=== PATIENT | male | born 1980 ===

== ENCOUNTER 2020-10-29 23:05 | Inpatient (IN) | payer SELFPAY ==
[~2020-10-29] VITALS: Ht 162.6 cm; Wt 83.1 kg
[2020-10-29] MEDS ORDERED: KETOROLAC 30 MG/ML VIAL IVP ONE (23:30)
[2020-10-29] MEDS ORDERED: ONDANSETRON 4 MG/2 ML (SDV) Z0FRAN IVP ONE (23:30)
[2020-10-29] MEDS ORDERED: LACTATED RINGERS 1,000 ML IV ONE (23:30)
[2020-10-29] MEDS ORDERED: ACETAMINOPHEN 500 MG TAB (TYLENOL) PO ONE (23:30)
[2020-10-30 00:07] LABS: BASOPHILS % (AUTO) 0 % (0-10); EOSINOPHILS % (AUTO) 0 % (0-10); HEMATOCRIT 49 % (40-54); HEMOGLOBIN 16.6 g/dL (13.3-17.7); LYMPHOCYTES # (AUTO) 0.7 10^3/uL (1.0-4.0); LYMPHOCYTES % (AUTO) 8 % (12-44); MEAN CORPUSCULAR HEMOGLOBIN 29 pg (25-34); MEAN CORPUSCULAR HGB CONC 34 g/dL (32-36); MEAN CORPUSCULAR VOLUME 86 fL (80-99); MONOCYTES # (AUTO) 0.3 10^3/uL (0.0-1.0); MONOCYTES % (AUTO) 4 % (0-12); NEUTROPHILS # (AUTO) 7.2 10^3/uL (1.8-7.8); NEUTROPHILS % (AUTO) 87 % (42-75); PLATELET COUNT 272 10^3/uL (130-400); WHITE BLOOD COUNT 8.3 10^3/uL (4.3-11.0)
[2020-10-30 00:09] LABS: ALBUMIN 3.9 GM/DL (3.2-4.5)
[2020-10-30 00:10] LABS: CHLORIDE 98 MMOL/L (98-107); POTASSIUM 3.3 MMOL/L (3.6-5.0); SODIUM 136 MMOL/L (135-145)
[2020-10-30 00:11] LABS: CALCIUM 9.5 MG/DL (8.5-10.1)
[2020-10-30 00:12] LABS: GLUCOSE 146 MG/DL (70-105); TOTAL PROTEIN 7.7 GM/DL (6.4-8.2)
[2020-10-30 00:13] LABS: CARBON DIOXIDE 22 MMOL/L (21-32)
[2020-10-30 00:14] LABS: BILIRUBIN,TOTAL 0.5 MG/DL (0.1-1.0)
[2020-10-30 00:15] LABS: ALKALINE PHOSPHATASE 174 U/L (40-136)
[2020-10-30 00:16] LABS: CREATININE SERUM 1.11 MG/DL (0.60-1.30); GFR ESTIMATED > 60
[2020-10-30 00:17] LABS: BUN/CREATININE RATIO 15
[2020-10-30 00:19] LABS: ALANINE AMINOTRANSFERASE 49 U/L (0-55)
[2020-10-30 00:25] LABS: LYMPHOCYTES % (MANUAL) 3 %; MONOCYTES % (MANUAL) 4 %; NEUTROPHILS % (MANUAL) 93 %; RBC MORPH NORMAL
[2020-10-30] MEDS ORDERED: RT-ALBUTEROL INHALER HFA (VENTOLIN HFA) 18 GM IH STA (01:50)
[2020-10-30] MEDS ORDERED: RT-ALBUTEROL INHALER HFA (VENTOLIN HFA) 18 GM IH ONE (01:50)
[2020-10-30] MEDS ORDERED: CATHETER FLUSH 10 ML SYR IV PRN (02:00)
[2020-10-30] MEDS ORDERED: IOHEXOL 350 MG/ML 100 ML (OMNIPAQUE 350) VIAL IV ONE (02:00)
[2020-10-30] MEDS ORDERED: NS 100 ML (IVPB) BAG IV ONE (02:00)
[2020-10-30] MEDS ORDERED: HOLD METFORMIN - RECEIVED CONTRAST 20 ML VIAL IV SCH (02:00)
--- NOTE | 2020-10-30 03:12 | ED General ---
General Chief Complaint: Respiratory Problems Stated Complaint: SOB Nursing Triage Note: TO ED VIA POV AND AMBULATORY TO ROOM 6 WITH C/O SOA, COUGH, COVID + (TESTED ON 10/21/20). PT STATES INCREASED COUGH/SOA LAST 3-4 DAYS, DECREASED APPETITE, VOMITING, DIARRHEA. LAST TYLENOL 1600 AND IBUPROFEN EARLIER IN DAY. Source of Information: Patient Exam Limitations: No Limitations History of Present Illness Date Seen by Provider: Oct 30, 2020 Time Seen by Provider: 23:30 Initial Comments This 40-year-old gentleman presents to the emergency room with increasing shortness of breath, cough, and exhaustion with COVID-19. He was diagnosed during a work screening on October 21. Oxygen saturation is 83% on room air. He has had some vomiting, diarrhea, headache, and myalgia. Allergies and Home Medications Allergies Coded Allergies: Sulfa (Sulfonamide Antibiotics) (Verified Allergy, Intermediate, 10/29/20) Patient Home Medication List Home Medication List Reviewed: Yes Review of Systems Review of Systems Constitutional: see HPI, fever EENTM: see HPI Respiratory: see HPI Cardiovascular: no symptoms reported Gastrointestinal: see HPI Genitourinary: no symptoms reported Musculoskeletal: see HPI Skin: no symptoms reported Psychiatric/Neurological: See HPI Hematologic/Lymphatic: No Symptoms Reported Immunological/Allergic: no symptoms reported Past Aawlrse-Lvonsz-Zwwukh Hx Patient Social History Tobacco Use?: No Substance use?: No Alcohol Use?: No Pt feels they are or have been: No Past Medical History Surgeries: No Respiratory: No Cardiac: No Neurological: No Reproductive Disorders: No Genitourinary: No Gastrointestinal: No Musculoskeletal: No Endocrine: No HEENT: No Cancer: No Psychosocial: No Integumentary: No Physical Exam Vital Signs Vital Signs - First Documented 10/29/20 23:21 Temp 38.2 Pulse 121 Resp 16 B/P (MAP) 151/92 (111) O2 Delivery Room Air Capillary Refill : Less Than 3 Seconds Height, Weight, BMI Height: '" Weight: lbs. oz. kg; 31.00 BMI Method: General Appearance: WD/WN, Mild Distress HEENT: PERRL/EOMI, Normal ENT Inspection Neck: Normal Inspection Respiratory: No Accessory Muscle Use, No Respiratory Distress, Wheezing Cardiovascular: Regular Rate, Rhythm, No Edema, No Murmur Gastrointestinal: Non Tender, Soft Extremity: Normal Inspection, Non Tender, No Calf Tenderness, No Pedal Edema Neurologic/Psychiatric: Alert, Oriented x3, No Motor/Sensory Deficits, Normal Mood/Affect, audio visual production specialist II-XII Norm as Tested Skin: Normal Color, Warm/Dry Progress/Results/Core Measures Suspected Sepsis SIRS Temperature: Pulse: 121 Respiratory Rate: 16 Laboratory Tests 10/29/20 23:30: White Blood Count 8.3 Blood Pressure 151 /92 Mean: 111 Laboratory Tests 10/29/20 23:30: Creatinine 1.11, Platelet Count 272, Total Bilirubin 0.5 Results/Orders Lab Results Laboratory Tests Test 10/29/20 23:30 Range/Units White Blood Count 8.3 4.3-11.0 10^3/uL Red Blood Count 5.65 H 4.30-5.52 10^6/uL Hemoglobin 16.6 13.3-17.7 g/dL Hematocrit 49 40-54 % Mean Corpuscular Volume 86 80-99 fL Mean Corpuscular Hemoglobin 29 25-34 pg Mean Corpuscular Hemoglobin Concent 34 32-36 g/dL Red Cell Distribution Width 12.7 10.0-14.5 % Platelet Count 272 130-400 10^3/uL Mean Platelet Volume 10.0 9.0-12.2 fL Immature Granulocyte % (Auto) 1 % Neutrophils (%) (Auto) 87 H 42-75 % Lymphocytes (%) (Auto) 8 L 12-44 % Monocytes (%) (Auto) 4 0-12 % Eosinophils (%) (Auto) 0 0-10 % Basophils (%) (Auto) 0 0-10 % Neutrophils # (Auto) 7.2 1.8-7.8 10^3/uL Lymphocytes # (Auto) 0.7 L 1.0-4.0 10^3/uL Monocytes # (Auto) 0.3 0.0-1.0 10^3/uL Eosinophils # (Auto) 0.0 0.0-0.3 10^3/uL Basophils # (Auto) 0.0 0.0-0.1 10^3/uL Immature Granulocyte # (Auto) 0.1 0.0-0.1 10^3/uL Neutrophils % (Manual) 93 % Lymphocytes % (Manual) 3 % Monocytes % (Manual) 4 % Blood Morphology Comment NORMAL D-Dimer 0.68 H 0.00-0.49 UG/ML Sodium Level 136 135-145 MMOL/L Potassium Level 3.3 L 3.6-5.0 MMOL/L Chloride Level 98 98-107 MMOL/L Carbon Dioxide Level 22 21-32 MMOL/L Anion Gap 16 H 5-14 MMOL/L Blood Urea Nitrogen 17 7-18 MG/DL Creatinine 1.11 0.60-1.30 MG/DL Estimat Glomerular Filtration Rate > 60 BUN/Creatinine Ratio 15 Glucose Level 146 H 70-105 MG/DL Calcium Level 9.5 8.5-10.1 MG/DL Corrected Calcium 9.6 8.5-10.1 MG/DL Total Bilirubin 0.5 0.1-1.0 MG/DL Aspartate Amino Transf (AST/SGOT) 62 H 5-34 U/L Alanine Aminotransferase (ALT/SGPT) 49 0-55 U/L Alkaline Phosphatase 174 H 40-136 U/L Lactate Dehydrogenase 471 H 125-220 U/L C-Reactive Protein High Sensitivity 14.23 H 0.00-0.50 MG/DL Total Protein 7.7 6.4-8.2 GM/DL Albumin 3.9 3.2-4.5 GM/DL Procalcitonin 0.18 H <0.10 NG/ML My Orders Orders - OFE DALLAS MD Ketorolac Injection (Toradol Injection) (10/29/20 23:30) Acetaminophen Tablet (Tylenol Tablet) (10/29/20 23:30) Ed Iv/Invasive Line Start (10/29/20 23:30) Lactated Ringers (Lr 1000 Ml Iv Solution (10/29/20 23:30) Ondansetron Injection (Zofran Injectio (10/29/20 23:30) Cbc With Automated Diff (10/29/20 23:33) Comprehensive Metabolic Panel (10/29/20 23:33) Fibrin Degradation Products (10/29/20 23:33) Procalcitonin (Pct) (10/29/20 23:33) Hs C Reactive Protein (10/29/20 23:33) LDH (10/29/20 23:33) Chest 1 View, Ap/Pa Only (10/30/20 00:01) Manual Differential (10/29/20 23:30) Ct Angio Chest W (10/30/20 00:47) Albuterol Inhaler (Ventolin Hfa) (10/30/20 01:50) Iohexol Injection (Omnipaque 350 Mg/Ml 1 (10/30/20 02:00) Received Contrast (Hold Metformin- Contr (10/30/20 02:00) Sodium Chloride Flush (Catheter Flush Sy (10/30/20 02:00) Ns (Ivpb) (Sodium Chloride 0.9% Ivpb Bag (10/30/20 02:00) Albuterol Inhaler (Ventolin Hfa) (10/30/20 01:50) Medications Given in ED Current Medications Medications Dose Ordered Sig/Flaquita Route Start Time Stop Time Status Last Admin Dose Admin Iohexol 100 ml ONCE ONCE IV 10/30/20 02:00 10/30/20 02:01 DC 10/30/20 02:11 90 ML Sodium Chloride 10 ml NEEDED PRN IV 10/30/20 02:00 10/30/20 02:12 10 ML Sodium Chloride 100 ml ONCE ONCE IV 10/30/20 02:00 10/30/20 02:01 DC 10/30/20 02:12 80 ML Vital Signs/I&O 10/29/20 23:21 Temp 38.2 Pulse 121 Resp 16 B/P (MAP) 151/92 (111) O2 Delivery Room Air Capillary Refill : Less Than 3 Seconds Blood Pressure Mean: 111 Progress Note : Progress Note Patient was treated with Tylenol, Toradol, IV fluids, Zofran, and dexamethasone. Because of hypoxia D-dimer was obtained which was elevated. CT angiogram was negative for PE. Patient was admitted. Diagnostic Imaging Diagonstic Imaging: Xray Plain Films/CT/US/NM/MRI: chest Comments NAME: SCARLETT HAWKINS [facility] REC#: [id number] PT STATUS: ADM IN : 1980 PHYSICIAN: OFE DALLAS MD ADMIT DATE: 10/30/20/ICU Signed Date of Exam:10/30/20 CHEST 1 VIEW, AP/PA ONLY INDICATION: Covid pneumonia. Shortness of air. Cough. Congestion. COMPARISON: None FINDINGS: Single frontal radiographic view of the chest was obtained and shows low inspiratory volumes with scattered patchy interstitial infiltrate. There is no large effusion or pneumothorax. Cardiac silhouette and pulmonary vasculature are within normal limits. Osseous structures show no gross acute abnormalities. IMPRESSION: 1. Low lung volumes with scattered interstitial infiltrate. Correlation with Covid status is recommended. Dictated by: Dictated on workstation # [id number] Dict: 10/30/20 05 Trans: 10/30/20926 CLARIBEL [id number] Interpreted by: ADAIR POLLOCK MD Electronically signed by: ADAIR POLLOCK MD 10/30/20926 Diagonstic Imaging: CT Plain Films/CT/US/NM/MRI: chest, abdomen Comments NAME: SCARLETT HAWKINS [facility] REC#: [id number] PT STATUS: ADM IN : 1980 PHYSICIAN: OFE DALLAS MD ADMIT DATE: 10/30/20/ICU Signed Date of Exam:10/30/20 CT ANGIO CHEST W PROCEDURE: CT angiography of the chest with contrast. TECHNIQUE: Multiple contiguous axial images were obtained through the chest after uneventful bolus administration of intravenous contrast. 3D reconstructed CTA MIP acquisitions were also performed. Auto Exposure Controls were utilized during the CT exam to meet ALARA standards for radiation dose reduction. INDICATION: Shortness of breath. FINDINGS: There are scattered groundglass infiltrates suspect for Covid pneumonia. There is no pleural or pericardial fluid. There is no pneumothorax. The thoracic aorta is normal in caliber and without evidence of dissection. There are no filling defects seen within the pulmonary arteries to suggest pulmonary embolism. There is no pathologically enlarged adenopathy in the chest. Visualized intra-abdominal structures are unremarkable. The osseous structures are unremarkable. IMPRESSION: No evidence of pulmonary embolism or aortic dissection. Multifocal groundglass infiltrates suspect for Covid pneumonia. Fatty infiltration of the liver. Dictated by: Dictated on workstation # [id number] Dict: 10/30/20 0750 Trans: 10/30/20802 [id number] Interpreted by: JESS NORWOOD MD Electronically signed by: JESS NORWOOD MD 10/30/20802 Departure Communication (Admissions) Time/Spoke to Admitting Phy: 03:07 Dr. Nance Impression Primary Impression: COVID-19 Additional Impression: Hypoxia Disposition: ADMITTED INPATIENT Condition: Improved Admissions Decision to Admit Reason: Admit from ER (General) Decision to Admit/Date: Oct 30, 2020 Time/Decision to Admit Time: 03:11 Departure-Patient Inst. Referrals: NO,LOCAL PHYSICIAN (PCP/Family) Primary Care Physician OFE DALLAS MD Oct 30, 2020 03:12
[2020-10-30] MEDS ORDERED: HYDROcodone/APAP 5 MG/325 MG (LORTAB) TAB PO PRN (05:15)
[2020-10-30] MEDS ORDERED: BENZONATATE 100 MG (TESSALON) CAPSULE PO PRN (05:15)
[2020-10-30] MEDS ORDERED: ONDANSETRON 4 MG/2 ML (SDV) Z0FRAN IV PRN (05:15)
[2020-10-30] MEDS ORDERED: IBUPROFEN 600 MG (MOTRIN) TAB PO PRN (05:15)
[2020-10-30] MEDS ORDERED: LACTATED RINGERS 1,000 ML IV SCH (05:15)
--- NOTE | 2020-10-30 05:35 | Diagnostic Imaging Report ---
INDICATION: Covid pneumonia. Shortness of air. Cough. Congestion. COMPARISON: None FINDINGS: Single frontal radiographic view of the chest was obtained and shows low inspiratory volumes with scattered patchy interstitial infiltrate. There is no large effusion or pneumothorax. Cardiac silhouette and pulmonary vasculature are within normal limits. Osseous structures show no gross acute abnormalities. IMPRESSION: 1. Low lung volumes with scattered interstitial infiltrate. Correlation with Covid status is recommended. Dictated by: Dictated on workstation # [id number]
[2020-10-30 07:50] LABS: BASOPHILS % (AUTO) 0 % (0-10); EOSINOPHILS % (AUTO) 0 % (0-10); HEMATOCRIT 46 % (40-54); HEMOGLOBIN 15.7 g/dL (13.3-17.7); LYMPHOCYTES # (AUTO) 0.5 10^3/uL (1.0-4.0); LYMPHOCYTES % (AUTO) 5 % (12-44); MEAN CORPUSCULAR HEMOGLOBIN 30 pg (25-34); MEAN CORPUSCULAR HGB CONC 34 g/dL (32-36); MEAN CORPUSCULAR VOLUME 87 fL (80-99); MEAN PLATELET VOLUME 9.8 fL (9.0-12.2); MONOCYTES # (AUTO) 0.3 10^3/uL (0.0-1.0); MONOCYTES % (AUTO) 3 % (0-12); NEUTROPHILS # (AUTO) 9.3 10^3/uL (1.8-7.8); NEUTROPHILS % (AUTO) 91 % (42-75); PLATELET COUNT 279 10^3/uL (130-400); WHITE BLOOD COUNT 10.3 10^3/uL (4.3-11.0)
--- NOTE | 2020-10-30 08:05 | Diagnostic Imaging Report ---
PROCEDURE: CT angiography of the chest with contrast. TECHNIQUE: Multiple contiguous axial images were obtained through the chest after uneventful bolus administration of intravenous contrast. 3D reconstructed CTA MIP acquisitions were also performed. Auto Exposure Controls were utilized during the CT exam to meet ALARA standards for radiation dose reduction. INDICATION: Shortness of breath. FINDINGS: There are scattered groundglass infiltrates suspect for Covid pneumonia. There is no pleural or pericardial fluid. There is no pneumothorax. The thoracic aorta is normal in caliber and without evidence of dissection. There are no filling defects seen within the pulmonary arteries to suggest pulmonary embolism. There is no pathologically enlarged adenopathy in the chest. Visualized intra-abdominal structures are unremarkable. The osseous structures are unremarkable. IMPRESSION: No evidence of pulmonary embolism or aortic dissection. Multifocal groundglass infiltrates suspect for Covid pneumonia. Fatty infiltration of the liver. Dictated by: Dictated on workstation # [id number]
[2020-10-30 08:18] LABS: BUN/CREATININE RATIO 13; CALCIUM 9.2 MG/DL (8.5-10.1); CARBON DIOXIDE 22 MMOL/L (21-32); CHLORIDE 103 MMOL/L (98-107); CREATININE SERUM 0.89 MG/DL (0.60-1.30); GFR ESTIMATED > 60; GLUCOSE 194 MG/DL (70-105); MAGNESIUM 2.1 MG/DL (1.6-2.4); PHOSPHORUS 2.5 MG/DL (2.3-4.7); POTASSIUM 3.3 MMOL/L (3.6-5.0); SODIUM 135 MMOL/L (135-145)
[2020-10-30] MEDS: ENOXAPARIN 40 MG/0.4 ML (LOVENOX) SYR SC SCH (08:34)
[2020-10-30] MEDS: KCL 20 MEQ TAB (K-DUR) PO SCH ×2 (09:57→12:42)
--- NOTE | 2020-10-30 10:29 | Tele-ICU Consult ---
History of Present Illness History of Present Illness Date Seen by Provider: Oct 30, 2020 Time Seen by Provider: 10:28 Date of Admission Allergies and Home Medications Allergies Coded Allergies: Sulfa (Sulfonamide Antibiotics) (Verified Allergy, Intermediate, 10/29/20) Past Medical/Social/Family Hx Patient Social History Tobacco Use?: No Substance use?: No Alcohol Use?: No Pt stated abuse/neglect: No Current Status Communicates: Verbally Primary Language: Khmer Preferred Spoken Language: Khmer Review of Systems Constitutional: see HPI Sepsis Event Evaluation Height, Weight, BMI Height: '" Weight: lbs. oz. kg; 31.00 BMI Method: Exam Exam Patient acknowledged, consented, and participated in this virtual visit which was conducted using real time audio/video Vital Signs Date Time Temp Pulse Resp B/P (MAP) Pulse Ox O2 Delivery O2 Flow Rate FiO2 10/30/20 09:00 96 17 144/88 (106) 92 Nasal Cannula 2.00 10/30/20 08:45 94 Nasal Cannula 2.00 10/30/20 08:34 94 Nasal Cannula 2.00 10/30/20 08:00 35.9 10/30/20 08:00 92 36 135/89 (104) 94 Nasal Cannula 3.00 10/30/20 07:00 96 9 163/102 (122) 94 Nasal Cannula 3.00 10/30/20 06:50 96 10/30/20 06:15 102 29 150/101 (117) 94 Nasal Cannula 3.00 10/30/20 05:45 92 13 151/98 (115) 94 Nasal Cannula 3.00 10/30/20 05:30 92 30 147/95 (112) 94 Nasal Cannula 3.00 10/30/20 05:15 96 20 151/98 (115) 93 Nasal Cannula 3.00 10/30/20 05:04 100 10/30/20 05:00 95 20 149/94 (112) 93 Nasal Cannula 3.00 10/30/20 05:00 94 Nasal Cannula 3.00 10/30/20 04:55 36.1 92 25 140/99 (111) 94 Nasal Cannula 3.00 10/29/20 23:21 38.2 121 16 151/92 (111) Room Air I & O 10/30/20 07:00 Intake Total 1100 ml Balance 1100 ml Height & Weight Height: '" Weight: lbs. oz. kg; 31.00 BMI Method: General Appearance: No Apparent Distress Capillary Refill: Less Than 3 Seconds Results Lab Laboratory Tests 10/29/20 23:30 10/30/20 07:32 Assessment/Plan Assessment/Plan (Tele-ICU Physician , consultation) Available chart/ vitals / labs / Images reviewed H&P is from ER notes Patient's information available about PMH, Shx, Fhx allergy reviewed in EMR. ROS as per chart and RN report Patient admitted 10/30 with COvid PNA, CT Ch - no PE Now in ICU, hemodynamically stable Video assessment done using teleICU camera, rest of exam as per RN Discussed with RN. Consultants: A/P Acute resp failure - COVID PNA, no PE on CT 10/30 - on NA 2 l COVID PNA - tested 10/21 - steroids IV 10/30 - out of time window for rmdesivir - monitor for bact PNA - PCT 10/30 0.18 Lines : , (Central Line Necessity Reviewed) Pond: OG: Nutrition: Analgesia: Anxiety/ delirium VTE Prophylaxis: Stress Ulcer Prophylaxis: Glycemic Control: Plans in collaboration with bedside consultants and IM MDs. Discussed with RN to reach out if any questions or concerns A total of _ minutes of critical care time was devoted to this patient today, required to treat and/or prevent further deterioration of critical care condition ( as above ) . TOÑITO HERRERA MD Oct 30, 2020 10:29
[2020-10-30] MEDS ORDERED: ACET-2267 PO (13:27)
[2020-10-30] MEDS ORDERED: IBUP-2185 PO (13:27)
[2020-10-30] MEDS ORDERED: MULT-1136 PO (13:27)
[2020-10-30] MEDS ORDERED: REMDESIVIR INJ 200 MG in NS (IVPB) 210 ML IV NR (16:00)
--- NOTE | 2020-10-30 16:13 | History & Physical-Hospitalist ---
History of Present Illness HPI/Chief Complaint Alejandro Diaz is a 40 year old male with PMH HTN who presented with shortness of breath. He also reports cough. He has had fevers. He has lost his sense of taste and smell. He had some diarrhea previously. He denies chest pain. He was not vaccinated against COVID-19. He has not had COVID previously. He thinks he was exposed around October 15. He was tested on October 21 prior to returning to work and was positive. He was asymptomatic at that time. He subsequently developed symptoms a couple days later. Source: patient Exam Limitations: no limitations Date Seen 10/30/20 Time Seen by a Provider: 14:30 Attending Physician Natalie Nance DO PCP No,Local Physician Referring Physician Date of Admission Oct 30, 2020 at 03:12 Home Medications & Allergies Home Medications Reviewed patient Home Medication Reconciliation performed by pharmacy medication reconciliations orthodontic laboratory technician and/or nursing. Patients Allergies have been reviewed. Allergies Allergies Coded Allergies Sulfa (Sulfonamide Antibiotics) (Verified Allergy, Intermediate, 10/29/20) Past Fdtocrx-Wsovdg-Rmkajq Hx Patient Social History Tobacco Use?: No Substance use?: No Alcohol Use?: No Pt feels they are or have been: No Current Status Communicates: Verbally Primary Language: Somali Preferred Spoken Language: Somali Past Medical History Hypertension Family Medical History No Pertinent Family Hx Review of Systems Constitutional: fever Respiratory: cough, short of breath Cardiovascular: no symptoms reported Gastrointestinal: diarrhea Genitourinary: no symptoms reported Musculoskeletal: no symptoms reported Skin: no symptoms reported Psychiatric/Neurological: No Symptoms Reported Physical Exam Physical Exam Vital Signs Vital Signs - First Documented 10/29/20 10/30/20 23:21 04:55 Temp 38.2 Pulse 121 Resp 16 B/P (MAP) 151/92 (111) Pulse Ox 94 O2 Delivery Room Air O2 Flow Rate 3.00 Capillary Refill : Less Than 3 Seconds Height, Weight, BMI Height: '" Weight: lbs. oz. kg; 31.00 BMI Method: General Appearance: No Apparent Distress, Obese Respiratory: No Respiratory Distress, Wheezing Cardiovascular: No Murmur, Tachycardia Gastrointestinal: Normal Bowel Sounds, Non Tender, Soft Extremity: Normal Inspection, Non Tender, No Pedal Edema Neurologic/Psychiatric: Alert, Oriented x3, No Motor/Sensory Deficits, Normal Mood/Affect Skin: Normal Color, Warm/Dry Lymphatic: No Adenopathy Results Results/Procedures Labs Laboratory Tests 10/29/20 23:30 10/30/20 07:32 Patient resulted labs reviewed. Imaging: Reviewed Imaging Report Assessment/Plan Admission Diagnosis Acute respiratory failure due to COVID-19 Admission Status: Inpatient Order (span 2 midnights) Reason for Inpatient Admission: Requiring supplemental oxygen Assessment and Plan Acute respiratory failure due to COVID-19 Elevated d-dimer Tested positive 10/21 Chest xray with bilateral infiltrates D-dimer mildly elevated CT Chest without PE, bilateral groundglass opacities Procalcitonin within normal limits, antibiotics not started Started on Decadron Begin Remdesivir Convalescent plasma ordered, discussed risks/benefits/EUA use and patient agrees Supplemental oxygen as needed Prophylactic Lovenox Pulmonology consult Hypokalemia Monitor and replace as needed Hyperglycemia Check A1C Sliding scale insulin HTN Not taking any medications at home Begin Lisinopril Obesity Clinically significant, no acute management needs DVT prophylaxis: Lovenox Diagnosis/Problems Diagnosis/Problems (1) Acute respiratory failure due to COVID-19 Status: Acute (2) Elevated d-dimer Status: Acute (3) HTN (hypertension) Status: Chronic (4) Obesity Status: Chronic (5) Hyperglycemia Status: Acute (6) Hypokalemia Status: Acute KAREY WALTON MD Oct 30, 2020 16:13
[2020-10-30] MEDS ORDERED: NS IV 500 ML 500 ML IV PRN (16:15)
[2020-10-30] MEDS ORDERED: lisINopril 40 MG (PRINIVIL) TABLET PO NR (16:30)
[2020-10-30] MEDS: inSUlin ASPART (NovoLOG) 1 UNIT/0.01 ML (CHARGE PER UNIT) SC SCH ×2 (17:46→20:50)
[2020-10-30] MEDS: guaiFENesin/DM (ROBITUSSIN DM) 10 ML UDC PO PRN (18:08)
[2020-10-30] MEDS ORDERED: CALCIUM CARBONATE 500 MG (TUMS) TAB.CHEW PO PRN (20:00)
[2020-10-31] MEDS: guaiFENesin/DM (ROBITUSSIN DM) 10 ML UDC PO PRN ×2 (03:33→23:25)
[2020-10-31 05:51] LABS: BASOPHILS % (AUTO) 0 % (0-10); EOSINOPHILS % (AUTO) 0 % (0-10); HEMATOCRIT 44 % (40-54); HEMOGLOBIN 15.1 g/dL (13.3-17.7); LYMPHOCYTES # (AUTO) 0.8 10^3/uL (1.0-4.0); LYMPHOCYTES % (AUTO) 6 % (12-44); MEAN CORPUSCULAR HEMOGLOBIN 30 pg (25-34); MEAN CORPUSCULAR HGB CONC 34 g/dL (32-36); MEAN CORPUSCULAR VOLUME 86 fL (80-99); MEAN PLATELET VOLUME 9.7 fL (9.0-12.2); MONOCYTES # (AUTO) 0.7 10^3/uL (0.0-1.0); MONOCYTES % (AUTO) 5 % (0-12); NEUTROPHILS % (AUTO) 88 % (42-75); PLATELET COUNT 369 10^3/uL (130-400); WHITE BLOOD COUNT 13.7 10^3/uL (4.3-11.0)
[2020-10-31 06:01] LABS: CHLORIDE 106 MMOL/L (98-107); POTASSIUM 3.7 MMOL/L (3.6-5.0)
[2020-10-31 06:02] LABS: SODIUM 140 MMOL/L (135-145)
[2020-10-31 06:03] LABS: CALCIUM 9.1 MG/DL (8.5-10.1); GLUCOSE 144 MG/DL (70-105)
[2020-10-31 06:05] LABS: CARBON DIOXIDE 22 MMOL/L (21-32)
[2020-10-31 06:07] LABS: CREATININE SERUM 0.76 MG/DL (0.60-1.30); GFR ESTIMATED > 60; PHOSPHORUS 2.8 MG/DL (2.3-4.7)
[2020-10-31 06:08] LABS: BUN/CREATININE RATIO 16
[2020-10-31] MEDS: POTASSIUM CL 10MEQ/50ML IVPB 50 ML IV SCH (06:16)
[2020-10-31] MEDS: inSUlin ASPART (NovoLOG) 1 UNIT/0.01 ML (CHARGE PER UNIT) SC SCH (06:16)
[2020-10-31] MEDS: KCL 20 MEQ TAB (K-DUR) PO SCH (06:16)
[2020-10-31] MEDS: MAGNESIUM 1 GM/100 ML IVPB 100 ML IV SCH (06:16)
[2020-10-31] MEDS: lisINopril 40 MG (PRINIVIL) TABLET PO SCH (09:46)
[2020-10-31] MEDS: ENOXAPARIN 40 MG/0.4 ML (LOVENOX) SYR SC SCH (09:46)
--- NOTE | 2020-10-31 10:54 | Pulmonary Progress Note ---
Subjective Date Seen by a Provider: Oct 31, 2020 Time Seen by a Provider: 10:50 Subjective/Events-last exam Patient today feeling somewhat better. Headache is less. Cough is also less. No leg swelling or rash present. Resting somewhat comfortably abdominal cramps and diarrhea improved. Sepsis Event Evaluation Height, Weight, BMI Height: '" Weight: lbs. oz. kg; 31.00 BMI Method: Exam Exam Patient acknowledged, consented, and participated in this virtual visit which was conducted using real time audio/video Vital Signs Date Time Temp Pulse Resp B/P (MAP) Pulse Ox O2 Delivery O2 Flow Rate FiO2 10/31/20 09:11 Nasal Cannula 3.00 10/31/20 03:31 36.5 77 20 146/96 (113) 92 Nasal Cannula 3.00 10/31/20 00:36 36.1 80 20 180/100 (126) 92 Nasal Cannula 3.00 10/30/20 20:00 Nasal Cannula 3.00 10/30/20 19:55 37.4 103 24 176/106 (129) 92 Nasal Cannula 3.00 10/30/20 16:12 37.0 92 18 158/98 (118) 89 Nasal Cannula 2.00 2.00 10/30/20 12:37 105 I & O 10/31/20 07:00 Intake Total 3004 ml Output Total 1478 ml Balance 1526 ml Height & Weight Height: '" Weight: lbs. oz. kg; 31.00 BMI Method: General Appearance: No Apparent Distress, Obese HEENT: PERRL/EOMI, Normal ENT Inspection Neck: Normal Inspection Respiratory: No Respiratory Distress, Wheezing Cardiovascular: No Murmur, Tachycardia Capillary Refill: Less Than 3 Seconds Extremity: Normal Inspection, Non Tender, No Pedal Edema Neurologic/Psychiatric: Alert, Oriented x3, No Motor/Sensory Deficits, Normal Mood/Affect Skin: Normal Color, Warm/Dry Lymphatic: No Adenopathy Results Lab Laboratory Tests 10/29/20 23:30 10/30/20 07:32 10/31/20 05:28 Meds reviewed Radiology reviewed on Pacs Assessment/Plan Assessment/Plan 1. Acute hypoxic respiratory failure on oxygen 2. Covid19 pneumonia, viral 3. Obesity. Recommendations 1. Continue supplemental oxygen via nasal cannula 2. Continue IV Decadron and Remdesvir 3. DVT prophylaxis and ulcer prophylaxis 4. Continue to monitor his a D-dimer and a BMP. 5. Discussed with the patient via video visit and also bedside RN Time spent with patient (mins): 30 Diagnosis/Problems Diagnosis/Problems (1) Hypoxia Status: Acute (2) COVID-19 Status: Acute (3) Acute respiratory failure due to COVID-19 Status: Acute (4) Hypokalemia Status: Acute (5) Obesity Status: Chronic (6) Elevated d-dimer Status: Acute (7) HTN (hypertension) Status: Chronic FRANCY SANDOVAL MD Oct 31, 2020 10:54
--- NOTE | 2020-10-31 15:13 | Progress Note - Hospitalist ---
Subjective HPI/CC On Admission Date Seen by Provider: Oct 31, 2020 Time Seen by Provider: 10:45 Alejandro Diaz is a 40 year old male with PMH HTN who presented with shortness of breath. He also reports cough. He has had fevers. He has lost his sense of taste and smell. He had some diarrhea previously. He denies chest pain. He was not vaccinated against COVID-19. He has not had COVID previously. He thinks he was exposed around October 15. He was tested on October 21 prior to returning to work and was positive. He was asymptomatic at that time. He subsequently developed symptoms a couple days later. Subjective/Events-last exam He is feeling better today. He is not feeling short of breath. He still has a cough. He is not having fevers. Objective Exam Vital Signs Vital Signs Date Time Temp Pulse Resp B/P (MAP) Pulse Ox O2 Delivery O2 Flow Rate FiO2 10/31/20 12:00 37.0 91 20 158/98 (118) 90 Nasal Cannula 3.00 Capillary Refill : Less Than 3 Seconds General Appearance: No Apparent Distress, WD/WN Respiratory: Lungs Clear, Normal Breath Sounds, No Respiratory Distress Cardiovascular: Regular Rate, Rhythm, No Edema, No Murmur Gastrointestinal: Normal Bowel Sounds, Non Tender, Soft Extremity: Normal Inspection, Non Tender, No Pedal Edema Neurologic/Psychiatric: Alert, Oriented x3, No Motor/Sensory Deficits, Normal Mood/Affect Skin: Normal Color, Warm/Dry Results/Procedures Lab Laboratory Tests 10/31/20 05:28 Patient resulted labs reviewed. Imaging: Reviewed Imaging Report Assessment/Plan Assessment and Plan Assess & Plan/Chief Complaint Acute respiratory failure due to COVID-19 Elevated d-dimer Tested positive 10/21 Chest xray with bilateral infiltrates D-dimer mildly elevated CT Chest without PE, bilateral groundglass opacities Procalcitonin within normal limits, antibiotics not started Continue Decadron Continue Remdesivir Awaiting convalescent plasma Supplemental oxygen as needed Prophylactic Lovenox Pulmonology consult Hypokalemia Monitor and replace as needed Prediabetes A1C 5.9% Sliding scale insulin HTN Not taking any medications at home Started on Lisinopril Obesity Clinically significant, no acute management needs DVT prophylaxis: Lovenox Diagnosis/Problems Diagnosis/Problems (1) Acute respiratory failure due to COVID-19 Status: Acute (2) Elevated d-dimer Status: Acute (3) HTN (hypertension) Status: Chronic (4) Obesity Status: Chronic (5) Hyperglycemia Status: Acute (6) Hypokalemia Status: Acute KAREY WALTON MD Oct 31, 2020 15:13
[2020-10-31 17:10] VITALS: BP 162/91
[2020-10-31 17:37] VITALS: BP 170/96
[2020-10-31 18:49] VITALS: BP_SYST 184; BP_DIAS 108; BP_DIAS 88
[2020-10-31] MEDS: REMDESIVIR INJ 100 MG in NS (IVPB) 230 ML IV SCH (18:50)
[2020-10-31] MEDS ORDERED: hydrALAZINE (APESOLINE) 20 MG/ML VIAL IV PRN (19:30)
[2020-11-01] MEDS: RT-ALBUTEROL INHALER HFA (VENTOLIN HFA) 18 GM IH PRN ×3 (00:22→21:31)
[2020-11-01 01:30] VITALS: BP 151/92
[2020-11-01 05:44] LABS: BASOPHILS # (AUTO) 0.1 10^3/uL (0.0-0.1); BASOPHILS % (AUTO) 0 % (0-10); EOSINOPHILS % (AUTO) 0 % (0-10); HEMATOCRIT 43 % (40-54); HEMOGLOBIN 14.6 g/dL (13.3-17.7); LYMPHOCYTES # (AUTO) 0.9 10^3/uL (1.0-4.0); LYMPHOCYTES % (AUTO) 5 % (12-44); MEAN CORPUSCULAR HEMOGLOBIN 30 pg (25-34); MEAN CORPUSCULAR HGB CONC 34 g/dL (32-36); MEAN CORPUSCULAR VOLUME 87 fL (80-99); MEAN PLATELET VOLUME 9.5 fL (9.0-12.2); MONOCYTES % (AUTO) 6 % (0-12); NEUTROPHILS # (AUTO) 15.2 10^3/uL (1.8-7.8); NEUTROPHILS % (AUTO) 85 % (42-75); PLATELET COUNT 435 10^3/uL (130-400)
[2020-11-01 05:56] LABS: CHLORIDE 107 MMOL/L (98-107); POTASSIUM 3.6 MMOL/L (3.6-5.0); SODIUM 142 MMOL/L (135-145)
[2020-11-01 05:57] LABS: CALCIUM 8.9 MG/DL (8.5-10.1)
[2020-11-01 05:58] LABS: GLUCOSE 137 MG/DL (70-105)
[2020-11-01 05:59] LABS: CARBON DIOXIDE 20 MMOL/L (21-32)
[2020-11-01 06:01] LABS: CREATININE SERUM 0.76 MG/DL (0.60-1.30); GFR ESTIMATED > 60; PHOSPHORUS 3.8 MG/DL (2.3-4.7)
[2020-11-01 06:02] LABS: BUN/CREATININE RATIO 21
[2020-11-01] MEDS: KCL 20 MEQ TAB (K-DUR) PO SCH (06:24)
[2020-11-01] MEDS: MAGNESIUM 1 GM/100 ML IVPB 100 ML IV SCH (06:24)
[2020-11-01] MEDS: POTASSIUM CL 10MEQ/50ML IVPB 50 ML IV SCH (06:24)
[2020-11-01] MEDS: RT-ALBUTEROL SULF 2.5 MG/3 ML PRE-MIX VIAL INH SCH (07:00)
[2020-11-01] MEDS: lisINopril 40 MG (PRINIVIL) TABLET PO SCH (08:45)
[2020-11-01] MEDS: ENOXAPARIN 40 MG/0.4 ML (LOVENOX) SYR SC SCH (08:45)
[2020-11-01] MEDS: amLODIPine 10 MG (NORVASC) TAB PO SCH (10:28)
--- NOTE | 2020-11-01 13:39 | Progress Note - Hospitalist ---
Subjective HPI/CC On Admission Date Seen by Provider: Nov 01, 2020 Time Seen by Provider: 11:10 Alejandro Diaz is a 40 year old male with PMH HTN who presented with shortness of breath. He also reports cough. He has had fevers. He has lost his sense of taste and smell. He had some diarrhea previously. He denies chest pain. He was n ot vaccinated against COVID-19. He has not had COVID previously. He thinks he was exposed around October 15. He was tested on October 21 prior to returning to work and was positive. He was asymptomatic at that time. He subsequently developed symptoms a couple days later. Subjective/Events-last exam He is feeling better today. He is not short of breath. His cough is better. He is not having fevers. Objective Exam Vital Signs Vital Signs Date Time Temp Pulse Resp B/P (MAP) Pulse Ox O2 Delivery O2 Flow Rate FiO2 11/01/20 12:00 36.6 81 20 162/98 (119) 94 Nasal Cannula 5.00 11/01/20 01:30 21 Capillary Refill : Less Than 3 Seconds General Appearance: No Apparent Distress, Obese Respiratory: Lungs Clear, Normal Breath Sounds, No Respiratory Distress Cardiovascular: Regular Rate, Rhythm, No Edema, No Murmur Gastrointestinal: Normal Bowel Sounds, Non Tender, Soft Extremity: Normal Inspection, Non Tender, No Pedal Edema Neurologic/Psychiatric: Alert, Oriented x3, No Motor/Sensory Deficits, Normal Mood/Affect Skin: Normal Color, Warm/Dry Results/Procedures Lab Laboratory Tests 11/01/20 05:16 Patient resulted labs reviewed. Imaging: Reviewed Imaging Report Assessment/Plan Assessment and Plan Assess & Plan/Chief Complaint Acute respiratory failure due to COVID-19 Elevated d-dimer Tested positive 10/21 Chest xray with bilateral infiltrates D-dimer mildly elevated CT Chest without PE, bilateral groundglass opacities Procalcitonin within normal limits, antibiotics not started Continue Decadron Continue Remdesivir day 3/5 s/p 1 unit convalescent plasma Supplemental oxygen as needed Prophylactic Lovenox Pulmonology consult Prediabetes No acute management needs HTN Not taking any medications at home Continue Lisinopril Add Amlodipine Obesity Clinically significant, no acute management needs DVT prophylaxis: Lovenox Hypokalemia, resolved Diagnosis/Problems Diagnosis/Problems (1) Acute respiratory failure due to COVID-19 Status: Acute (2) Elevated d-dimer Status: Acute (3) HTN (hypertension) Status: Chronic (4) Obesity Status: Chronic (5) Hyperglycemia Status: Acute (6) Hypokalemia Status: Acute KAREY WALTON MD Nov 01, 2020 13:39
[2020-11-01] MEDS: REMDESIVIR INJ 100 MG in NS (IVPB) 230 ML IV SCH (15:40)
[2020-11-01] MEDS: guaiFENesin/DM (ROBITUSSIN DM) 10 ML UDC PO PRN (23:46)
[2020-11-02 05:45] LABS: BASOPHILS # (AUTO) 0.1 10^3/uL (0.0-0.1); BASOPHILS % (AUTO) 1 % (0-10); EOSINOPHILS % (AUTO) 0 % (0-10); HEMATOCRIT 45 % (40-54); HEMOGLOBIN 15.3 g/dL (13.3-17.7); LYMPHOCYTES # (AUTO) 0.9 10^3/uL (1.0-4.0); LYMPHOCYTES % (AUTO) 6 % (12-44); MEAN CORPUSCULAR HEMOGLOBIN 30 pg (25-34); MEAN CORPUSCULAR HGB CONC 34 g/dL (32-36); MEAN CORPUSCULAR VOLUME 88 fL (80-99); MEAN PLATELET VOLUME 9.5 fL (9.0-12.2); MONOCYTES # (AUTO) 0.8 10^3/uL (0.0-1.0); MONOCYTES % (AUTO) 5 % (0-12); NEUTROPHILS # (AUTO) 12.9 10^3/uL (1.8-7.8); NEUTROPHILS % (AUTO) 83 % (42-75); PLATELET COUNT 485 10^3/uL (130-400); WHITE BLOOD COUNT 15.5 10^3/uL (4.3-11.0)
[2020-11-02 05:59] LABS: CHLORIDE 105 MMOL/L (98-107); SODIUM 138 MMOL/L (135-145)
[2020-11-02 06:00] LABS: CALCIUM 8.8 MG/DL (8.5-10.1)
[2020-11-02 06:01] LABS: GLUCOSE 140 MG/DL (70-105)
[2020-11-02 06:02] LABS: CARBON DIOXIDE 21 MMOL/L (21-32)
[2020-11-02 06:05] LABS: CREATININE SERUM 0.74 MG/DL (0.60-1.30); GFR ESTIMATED > 60; PHOSPHORUS 4.5 MG/DL (2.3-4.7)
[2020-11-02 06:06] LABS: BUN/CREATININE RATIO 22
[2020-11-02] MEDS: MAGNESIUM 1 GM/100 ML IVPB 100 ML IV SCH (06:08)
[2020-11-02] MEDS: POTASSIUM CL 10MEQ/50ML IVPB 50 ML IV SCH (06:08)
[2020-11-02] MEDS: KCL 20 MEQ TAB (K-DUR) PO SCH (06:08)
[2020-11-02] MEDS: RT-ALBUTEROL INHALER HFA (VENTOLIN HFA) 18 GM IH PRN (07:28)
[2020-11-02] MEDS: RT-ALBUTEROL SULF 2.5 MG/3 ML PRE-MIX VIAL INH SCH ×2 (07:29→07:30)
[2020-11-02] MEDS ORDERED: hydrALAZINE (APRESOLINE) 25 MG TAB PO ONE (08:15)
[2020-11-02] MEDS ORDERED: metFORMIN 500 MG (GLUCOPHAGE) TAB PO ONE (08:15)
[2020-11-02] MEDS: ENOXAPARIN 40 MG/0.4 ML (LOVENOX) SYR SC SCH (08:29)
[2020-11-02] MEDS: amLODIPine 10 MG (NORVASC) TAB PO SCH (08:29)
[2020-11-02] MEDS: lisINopril 40 MG (PRINIVIL) TABLET PO SCH (08:29)
--- NOTE | 2020-11-02 12:33 | Progress Note - Hospitalist ---
Subjective HPI/CC On Admission Date Seen by Provider: Nov 02, 2020 Time Seen by Provider: 10:45 Alejandro Diaz is a 40 year old male with PMH HTN who presented with shortness of breath. He also reports cough. He has had fevers. He has lost his sense of taste and smell. He had some diarrhea previously. He denies chest pain. He was n ot vaccinated against COVID-19. He has not had COVID previously. He thinks he was exposed around October 15. He was tested on October 21 prior to returning to work and was positive. He was asymptomatic at that time. He subsequently developed symptoms a couple days later. Subjective/Events-last exam Feeling about the same. He is still short of breath. He still has a cough. He says he got dizzy when he walk to the bathroom. He has been eating and drinking. He has no other complaints or concerns. Objective Exam Vital Signs Vital Signs Date Time Temp Pulse Resp B/P (MAP) Pulse Ox O2 Delivery O2 Flow Rate FiO2 11/02/20 11:56 36.6 85 20 155/82 (106) 92 Nasal Cannula 2.00 11/01/20 01:30 21 Capillary Refill : Less Than 3 Seconds General Appearance: No Apparent Distress, Obese Respiratory: Lungs Clear, Normal Breath Sounds, No Respiratory Distress Cardiovascular: Regular Rate, Rhythm, No Edema, No Murmur Gastrointestinal: Normal Bowel Sounds, Non Tender, Soft Extremity: Normal Inspection, Non Tender, No Pedal Edema Neurologic/Psychiatric: Alert, Oriented x3, No Motor/Sensory Deficits Skin: Normal Color, Warm/Dry Results/Procedures Lab Laboratory Tests 11/02/20 05:35 Patient resulted labs reviewed. Imaging: Reviewed Imaging Report Assessment/Plan Assessment and Plan Assess & Plan/Chief Complaint Acute respiratory failure due to COVID-19 Elevated d-dimer Tested positive 10/21 Chest xray with bilateral infiltrates D-dimer mildly elevated CT Chest without PE, bilateral groundglass opacities Procalcitonin within normal limits, antibiotics not started Continue Decadron Continue Remdesivir day 4/5 s/p 1 unit convalescent plasma Supplemental oxygen as needed Prophylactic Lovenox Pulmonology consulted Prediabetes Started on Metformin HTN Not taking any medications at home Continue Lisinopril and Amlodipine Add Hydralazine Obesity Clinically significant, no acute management needs DVT prophylaxis: Lovenox Hypokalemia, resolved Diagnosis/Problems Diagnosis/Problems (1) Acute respiratory failure due to COVID-19 Status: Acute (2) Elevated d-dimer Status: Acute (3) HTN (hypertension) Status: Chronic (4) Obesity Status: Chronic (5) Hyperglycemia Status: Acute (6) Hypokalemia Status: Acute KAREY WALTON MD Nov 02, 2020 12:33
[2020-11-02] MEDS: hydrALAZINE (APRESOLINE) 25 MG TAB PO SCH ×2 (14:04→20:25)
[2020-11-02] MEDS: REMDESIVIR INJ 100 MG in NS (IVPB) 230 ML IV SCH (15:37)
[2020-11-02] MEDS: guaiFENesin/DM (ROBITUSSIN DM) 10 ML UDC PO PRN (20:24)
[2020-11-02] MEDS: RT-ALBUTEROL INHALER HFA (VENTOLIN HFA) 18 GM IH SCH (22:50)
[2020-11-03 05:37] LABS: BASOPHILS % (AUTO) 0 % (0-10); EOSINOPHILS % (AUTO) 0 % (0-10); HEMATOCRIT 46 % (40-54); HEMOGLOBIN 15.6 g/dL (13.3-17.7); LYMPHOCYTES % (AUTO) 7 % (12-44); MEAN CORPUSCULAR HEMOGLOBIN 29 pg (25-34); MEAN CORPUSCULAR HGB CONC 34 g/dL (32-36); MEAN CORPUSCULAR VOLUME 87 fL (80-99); MEAN PLATELET VOLUME 9.4 fL (9.0-12.2); MONOCYTES # (AUTO) 0.8 10^3/uL (0.0-1.0); MONOCYTES % (AUTO) 5 % (0-12); NEUTROPHILS # (AUTO) 12.5 10^3/uL (1.8-7.8); NEUTROPHILS % (AUTO) 80 % (42-75); PLATELET COUNT 503 10^3/uL (130-400); WHITE BLOOD COUNT 15.6 10^3/uL (4.3-11.0)
[2020-11-03 05:49] LABS: CHLORIDE 104 MMOL/L (98-107); POTASSIUM 4.2 MMOL/L (3.6-5.0); SODIUM 137 MMOL/L (135-145)
[2020-11-03 05:50] LABS: CALCIUM 8.6 MG/DL (8.5-10.1)
[2020-11-03 05:51] LABS: GLUCOSE 161 MG/DL (70-105)
[2020-11-03 05:52] LABS: CARBON DIOXIDE 21 MMOL/L (21-32)
[2020-11-03 05:54] LABS: PHOSPHORUS 4.2 MG/DL (2.3-4.7)
[2020-11-03 05:55] LABS: BUN/CREATININE RATIO 22; CREATININE SERUM 0.78 MG/DL (0.60-1.30); GFR ESTIMATED > 60
[2020-11-03 05:57] LABS: MAGNESIUM 2.1 MG/DL (1.6-2.4)
[2020-11-03] MEDS: POTASSIUM CL 10MEQ/50ML IVPB 50 ML IV SCH (06:00)
[2020-11-03] MEDS: MAGNESIUM 1 GM/100 ML IVPB 100 ML IV SCH (06:00)
[2020-11-03] MEDS: KCL 20 MEQ TAB (K-DUR) PO SCH (06:01)
[2020-11-03] MEDS: hydrALAZINE (APRESOLINE) 25 MG TAB PO SCH ×2 (06:12→14:13)
[2020-11-03] MEDS: guaiFENesin/DM (ROBITUSSIN DM) 10 ML UDC PO PRN (06:16)
[2020-11-03] MEDS ORDERED: metFORMIN 500 MG (GLUCOPHAGE) TAB PO SCH (07:00)
[2020-11-03] MEDS: amLODIPine 10 MG (NORVASC) TAB PO SCH (08:48)
[2020-11-03] MEDS: lisINopril 40 MG (PRINIVIL) TABLET PO SCH (08:48)
[2020-11-03] MEDS: ENOXAPARIN 40 MG/0.4 ML (LOVENOX) SYR SC SCH (08:48)
--- NOTE | 2020-11-03 12:56 | Pulmonary Progress Note ---
Subjective Date Seen by a Provider: Nov 03, 2020 Time Seen by a Provider: 12:53 Subjective/Events-last exam Not working hard to breathin, down to 2.5, NC, may go home today, still on decadron and remdesivir Sepsis Event Evaluation Height, Weight, BMI Height: '" Weight: lbs. oz. kg; 31.00 BMI Method: Exam Exam Patient acknowledged, consented, and participated in this virtual visit which was conducted using real time audio/video Vital Signs Date Time Temp Pulse Resp B/P (MAP) Pulse Ox O2 Delivery O2 Flow Rate FiO2 11/03/20 08:00 35.7 60 20 130/77 (94) 92 Nasal Cannula 2.50 11/03/20 08:00 94 Nasal Cannula 2.50 11/03/20 03:31 36.3 77 26 165/92 (116) 93 Nasal Cannula 2.00 11/02/20 23:40 36.4 81 26 159/84 (109) 91 Nasal Cannula 2.00 11/02/20 21:00 2.00 11/02/20 20:35 90 Nasal Cannula 2.00 11/02/20 20:25 90 Nasal Cannula 2.00 11/02/20 19:30 36.4 94 20 178/108 (131) 91 Nasal Cannula 2.00 11/02/20 15:56 36.7 88 20 138/94 (109) 92 Nasal Cannula 2.00 I & O 11/03/20 07:00 Intake Total 2010 ml Output Total 1625 ml Balance 385 ml Height & Weight Height: '" Weight: lbs. oz. kg; 31.00 BMI Method: General Appearance: No Apparent Distress, Obese HEENT: PERRL/EOMI, Normal ENT Inspection Neck: Normal Inspection Respiratory: Lungs Clear, Normal Breath Sounds, No Respiratory Distress, Other (desaturates on walking to bathroom) Cardiovascular: Regular Rate, Rhythm, No Edema, No Murmur Capillary Refill: Less Than 3 Seconds Gastrointestinal: normal bowel sounds, non tender Extremity: Normal Inspection, Non Tender, No Pedal Edema Neurologic/Psychiatric: Alert, Oriented x3, No Motor/Sensory Deficits Skin: Normal Color, Warm/Dry Lymphatic: No Adenopathy Results Lab Laboratory Tests 11/02/20 05:35 11/03/20 05:30 Assessment/Plan Assessment/Plan Doing well but still needs needs oxygen, will continue present meds Time spent with patient (mins): 12 ADEN LÓPEZ MD Nov 03, 2020 12:56
[2020-11-03] MEDS ORDERED: LISI40TA9 PO (13:46)
[2020-11-03] MEDS ORDERED: AMLO-251 PO (13:46)
--- NOTE | 2020-11-03 13:47 | Discharge Inst-Simple/Standard ---
Discharge Inst-Standard Discharge Medications New, Converted or Re-Newed RX: Transmitted to Pharmacy Patient Instructions/Follow Up Plan of Care/Instructions/FU: Please continue to take your medications as written. Please follow up with your primary care doctor to follow up this hospital stay. Activity as Tolerated: Yes Discharge Diet: Cardiac Diet Return to The Hospital For: Chest pain, shortness of breath, fever, low oxygen. If you feel you are getting worse. DEE YODER MD Nov 03, 2020 13:47
--- NOTE | 2020-11-03 13:49 | Discharge Summary ---
Diagnosis/Chief Complaint Date of Admission Oct 30, 2020 at 03:12 Date of Discharge Discharge Date: Nov 03, 2020 Admission Diagnosis Acute respiratory failure due to COVID-19 Primary Care No,Local Physician Discharge Diagnosis (1) Hypoxia Status: Acute (2) COVID-19 Status: Acute (3) Acute respiratory failure due to COVID-19 Status: Acute (4) Hypokalemia Status: Acute (5) Obesity Status: Chronic (6) Elevated d-dimer Status: Acute (7) HTN (hypertension) Status: Chronic Discharge Summary Discharge Physical Exam Allergies: Coded Allergies: Sulfa (Sulfonamide Antibiotics) (Verified Allergy, Intermediate, 10/29/20) Vitals & I&Os Vital Signs Date Time Temp Pulse Resp B/P (MAP) Pulse Ox O2 Delivery O2 Flow Rate FiO2 11/03/20 17:26 11/03/20 15:40 36.8 99 20 90 Nasal Cannula 2.00 11/01/20 01:30 21 General Appearance: No Apparent Distress, WD/WN Respiratory: Lungs Clear, No Respiratory Distress Cardiovascular: Regular Rate, Rhythm, No Murmur Neurologic/Psychiatric: Alert, Oriented x3 Hospital Course Patient was admitted with acute hypoxic respiratory failure due to COVID-19. He was treated with Decadron, convalescent plasma, and Remdesivir. He did well and was able to be titrated down on oxygen and home study revealed a 2lpm with exertion need. He was discharged home in stable and improved condition to follow-up with his primary care provider. He was newly diagnosed with HTN while here and started on Amlodipine and Lisinopril. Labs (last 24 hrs) Laboratory Tests 11/03/20 05:30: White Blood Count 15.6H, Red Blood Count 5.32, Hemoglobin 15.6, Hematocrit 46, Mean Corpuscular Volume 87, Mean Corpuscular Hemoglobin 29, Mean Corpuscular Hemoglobin Concent 34, Red Cell Distribution Width 12.6, Platelet Count 503H, Mean Platelet Volume 9.4, Immature Granulocyte % (Auto) 9, Neutrophils (%) (Auto) 80H, Lymphocytes (%) (Auto) 7L, Monocytes (%) (Auto) 5, Eosinophils (%) (Auto) 0, Basophils (%) (Auto) 0, Neutrophils # (Auto) 12.5H, Lymphocytes # (Auto) 1.0, Monocytes # (Auto) 0.8, Eosinophils # (Auto) 0.0, Basophils # (Auto) 0.0, Immature Granulocyte # (Auto) 1.4H, Sodium Level 137, Potassium Level 4.2, Chloride Level 104, Carbon Dioxide Level 21, Anion Gap 12, Blood Urea Nitrogen 17, Creatinine 0.78, Estimat Glomerular Filtration Rate > 60, BUN/Creatinine Ratio 22, Glucose Level 161H, Calcium Level 8.6, Phosphorus Level 4.2, Magnesium Level 2.1 Microbiology 10/29/20 Blood Culture - Preliminary, Resulted No growth Patient resulted labs reviewed. Imaging: Reviewed Imaging Report Discussion & Recommendations Discharge Planning: >30 minutes discharge planning Discharge Home Medications: Active Scripts Active Amlodipine Besylate 10 Mg Tablet 10 Mg PO DAILY Lisinopril 40 Mg Tablet 40 Mg PO DAILY Reported Multivitamin 1 Each Tablet 1 Each PO DAILY Ibuprofen 200 Mg Capsule 400 Mg PO Q8H PRN Tylenol Extra Strength (Acetaminophen) 500 Mg Tablet 500-1,000 Mg PO Q8H PRN Instructions to patient/family Please see electronic discharge instructions given to patient. DEE YODER MD Nov 03, 2020 13:49
[2020-11-03] MEDS: RT-ALBUTEROL INHALER HFA (VENTOLIN HFA) 18 GM IH SCH (15:07)
[2020-11-03] MEDS: REMDESIVIR INJ 100 MG in NS (IVPB) 230 ML IV SCH (15:59)
== END 2020-11-03 17:30 | disposition home or self-care (01) | DRG 177 ==
LOC: ER 23:11 → ICU 10-30 03:12 → 4TH 10-30 10:45
PROVIDERS: ADMIT Internal Medicine; ATTEND Family Medicine
PROC: XW033E5 Introduction of Remdesivir Anti-infective into Peripheral Vein, Percutaneous Approach, New Technology Group 5 (ICD-10-PCS; principal; 2020-10-30)
PROC: XW13325 Transfusion of Convalescent Plasma (Nonautologous) into Peripheral Vein, Percutaneous Approach, New Technology Group 5 (ICD-10-PCS; 2020-10-31)
DX: U07.1 COVID-19 (principal); J12.82 Pneumonia due to coronavirus disease 2019; J96.01 Acute respiratory failure with hypoxia; I10 Essential (primary) hypertension; E87.6 Hypokalemia; R73.03 Prediabetes; R79.1 Abnormal coagulation profile; E66.9 Obesity, unspecified; Z68.31 Body mass index [BMI] 31.0-31.9, adult; Z88.2 Allergy status to sulfonamides; Z73.0 Burn-out
CPT/HCPCS: 36415; 71045; 71275; 80048; 80053; 82947; 83036; 83615; 83735; 84100; 84145; 85007; 85025; 85027; 85379; 86141; 86900; 86901; 87040; 94640; 94760; 94761

== ENCOUNTER 2020-11-13 12:31 | Emergency (ER) | payer SELFPAY ==
[~2020-11-13] VITALS: Ht 162.5 cm; Wt 83.1 kg
[~2020-11-13 12:31] MED LIST: ACET-2267 PO; AMLO-251 PO; IBUP-2185 PO; LISI40TA9 PO; MULT-1136 PO
--- NOTE | 2020-11-13 12:58 | ED Respiratory ---
General Chief Complaint: Respiratory Problems Stated Complaint: HIGH BP, HIGH HR Source: patient Exam Limitations: no limitations History of Present Illness Date Seen by Provider: Nov 13, 2020 Time Seen by Provider: 12:58 Initial Comments To ER with high blood pressure and high heart rate. He feels fine. He was diagnosed with Covid on October 21. He was admitted to the hospital from 10/30-11/03. He did require supplemental oxygen. He has been feeling fine and was getting clearance to go back to work at [employer] today when during his return to work exam he was noted to be tachycardic in the 120s. His SPO2 dropped to 92% with exertion and he was hypertensive. He recently restarted lisinopril about a month ago. Timing/Duration: constant Severity: moderate Associated Symptoms: denies symptoms Allergies and Home Medications Allergies Coded Allergies: Sulfa (Sulfonamide Antibiotics) (Verified Allergy, Intermediate, 10/29/20) Home Medications Acetaminophen 500 Mg Tablet, 500-1,000 MG PO Q8H PRN for PAIN-MILD (1-4), (Reported) Amlodipine Besylate 10 Mg Tablet, 10 MG PO DAILY Prescribed by: DEE YODER on 11/03/20 1346 Ibuprofen 200 Mg Capsule, 400 MG PO Q8H PRN for PAIN-MILD (1-4), (Reported) Lisinopril 40 Mg Tablet, 40 MG PO DAILY Prescribed by: DEE YODER on 11/03/20 1346 Metoprolol Succinate 50 Mg Tab.er.24h, 50 MG PO DAILY Prescribed by: KATHY LAW on 11/13/20 1422 Multivitamin 1 Each Tablet, 1 EACH PO DAILY, (Reported) Patient Home Medication List Home Medication List Reviewed: Yes Review of Systems Review of Systems Constitutional: see HPI EENTM: see HPI Respiratory: no symptoms reported Cardiovascular: no symptoms reported Genitourinary: no symptoms reported Musculoskeletal: no symptoms reported Skin: no symptoms reported Psychiatric/Neurological: No Symptoms Reported Hematologic/Lymphatic: No Symptoms Reported Immunological/Allergic: no symptoms reported Past Cwxhlhf-Fnjbka-Fbekes Hx Past Medical History Surgeries: No Respiratory: No Cardiac: No Hypertension Neurological: No Reproductive Disorders: No Genitourinary: No Gastrointestinal: No Musculoskeletal: No Endocrine: No HEENT: No Cancer: No Psychosocial: No Integumentary: No Family Medical History No Pertinent Family Hx Physical Exam Vital Signs - First Documented 11/13/20 13:00 Temp 37.9 Pulse 116 Resp 20 B/P (MAP) 161/123 (136) Pulse Ox 96 O2 Delivery Room Air Capillary Refill : Height: '" Weight: lbs. oz. kg; 31.00 BMI Method: General Appearance: WD/WN, no apparent distress, other (Alert and oriented no complaints states that he feels good. Speaks in full sentences without distress. Heart rate is 119 sinus. He is 160s over 120s on the blood pressure. Oxygen saturation 97 to 98% room air.) Neck: non-tender, full range of motion Respiratory: no respiratory distress, no accessory muscle use Cardiovascular: no murmur, tachycardia Gastrointestinal: normal bowel sounds, non tender, soft Neurologic/Psychiatric: alert, normal mood/affect Skin: normal color, warm/dry Focused Exam Lactate Level 11/13/20 13:00: Lactic Acid Level 1.34 Lactic Acid Level Laboratory Tests Test 11/13/20 13:00 Lactic Acid Level 1.34 MMOL/L (0.50-2.00) Progress/Results/Core Measures Suspected Sepsis SIRS Temperature: Pulse: Respiratory Rate: Laboratory Tests 11/13/20 13:00: White Blood Count 11.7H Blood Pressure / Mean: 11/13/20 13:00: Lactic Acid Level 1.34 Laboratory Tests 11/13/20 13:00: Creatinine 0.85, INR Comment 0.9, Platelet Count 359, Total Bilirubin 0.6 Results/Orders Lab Results Laboratory Tests Test 11/13/20 13:00 11/13/20 15:30 Range/Units White Blood Count 11.7 H 4.3-11.0 10^3/uL Red Blood Count 5.15 4.30-5.52 10^6/uL Hemoglobin 15.2 13.3-17.7 g/dL Hematocrit 45 40-54 % Mean Corpuscular Volume 88 80-99 fL Mean Corpuscular Hemoglobin 30 25-34 pg Mean Corpuscular Hemoglobin Concent 34 32-36 g/dL Red Cell Distribution Width 12.8 10.0-14.5 % Platelet Count 359 130-400 10^3/uL Mean Platelet Volume 10.1 9.0-12.2 fL Immature Granulocyte % (Auto) 1 % Neutrophils (%) (Auto) 81 H 42-75 % Lymphocytes (%) (Auto) 11 L 12-44 % Monocytes (%) (Auto) 7 0-12 % Eosinophils (%) (Auto) 0 0-10 % Basophils (%) (Auto) 1 0-10 % Neutrophils # (Auto) 9.4 H 1.8-7.8 10^3/uL Lymphocytes # (Auto) 1.3 1.0-4.0 10^3/uL Monocytes # (Auto) 0.8 0.0-1.0 10^3/uL Eosinophils # (Auto) 0.0 0.0-0.3 10^3/uL Basophils # (Auto) 0.1 0.0-0.1 10^3/uL Immature Granulocyte # (Auto) 0.1 0.0-0.1 10^3/uL Prothrombin Time 12.5 12.2-14.7 SEC INR Comment 0.9 0.8-1.4 Activated Partial Thromboplast Time 28 24-35 SEC D-Dimer < 0.27 0.00-0.49 UG/ML Sodium Level 142 135-145 MMOL/L Potassium Level 4.1 3.6-5.0 MMOL/L Chloride Level 107 98-107 MMOL/L Carbon Dioxide Level 25 21-32 MMOL/L Anion Gap 10 5-14 MMOL/L Blood Urea Nitrogen 16 7-18 MG/DL Creatinine 0.85 0.60-1.30 MG/DL Estimat Glomerular Filtration Rate 100 BUN/Creatinine Ratio 19 Glucose Level 114 H 70-105 MG/DL Lactic Acid Level 1.34 0.50-2.00 MMOL/L Calcium Level 9.7 8.5-10.1 MG/DL Corrected Calcium 9.5 8.5-10.1 MG/DL Magnesium Level 2.1 1.6-2.4 MG/DL Total Bilirubin 0.6 0.1-1.0 MG/DL Aspartate Amino Transf (AST/SGOT) 33 5-34 U/L Alanine Aminotransferase (ALT/SGPT) 54 0-55 U/L Alkaline Phosphatase 95 40-136 U/L Total Protein 8.1 6.4-8.2 GM/DL Albumin 4.2 3.2-4.5 GM/DL Procalcitonin 0.03 <0.10 NG/ML My Orders Orders - KATHY LAW [employer]IP[employer] Cbc With Automated Diff (11/13/20 12:47) Comprehensive Metabolic Panel (11/13/20 12:47) Ed Iv/Invasive Line Start (11/13/20 12:47) Ct Angio Chest W (11/13/20 12:47) Ekg Tracing (11/13/20 12:47) Magnesium (11/13/20 12:47) Procalcitonin (Pct) (11/13/20 12:56) Blood Culture (11/13/20 12:56) Lactic Acid Analyzer (11/13/20 12:56) Sputum Culture (11/13/20 12:56) Urinalysis (11/13/20 12:56) Urine Culture (11/13/20 12:56) Protime With Inr (11/13/20 12:56) Partial Thromboplastin Time (11/13/20 12:56) Chest 1 View, Ap/Pa Only (11/13/20 12:56) Vital Signs Adult Sepsis Patie Q15M (11/13/20 12:56) O2 (11/13/20 12:56) Remove Rings In Anticipation O (11/13/20 12:56) Metoprolol Tartrate Injection (Lopressor (11/13/20 13:00) Iohexol Injection (Omnipaque 350 Mg/Ml 1 (11/13/20 13:15) Received Contrast (Hold Metformin- Contr (11/13/20 13:15) Sodium Chloride Flush (Catheter Flush Sy (11/13/20 13:15) Ns (Ivpb) (Sodium Chloride 0.9% Ivpb Bag (11/13/20 13:15) Metoprolol Tartrate Injection (Lopressor (11/13/20 13:30) Fibrin Degradation Products (11/13/20 13:24) Metoprolol Succinate (Xl) Tab (Toprol Xl (11/13/20 14:30) Clonidine Tablet (Catapres Tablet) (11/13/20 14:45) Clonidine Tablet (Catapres Tablet) (11/13/20 14:35) Medications Given in ED Current Medications Medications Dose Ordered Sig/Flaquita Route Start Time Stop Time Status Last Admin Dose Admin Clonidine HCl 0.1 mg ONCE ONCE PO 11/13/20 14:45 11/13/20 14:46 DC 11/13/20 14:37 0.1 MG Iohexol 100 ml ONCE ONCE IV 11/13/20 13:15 11/13/20 13:16 DC 11/13/20 13:55 72 ML Metoprolol Tartrate 5 mg ONCE ONCE IV 11/13/20 13:00 11/13/20 13:01 DC 11/13/20 13:09 5 MG Metoprolol Tartrate 5 mg ONCE ONCE IV 11/13/20 13:30 11/13/20 13:31 DC 11/13/20 13:37 5 MG Sodium Chloride 10 ml NEEDED PRN IV 11/13/20 13:15 11/13/20 13:55 10 ML Sodium Chloride 100 ml ONCE ONCE IV 11/13/20 13:15 11/13/20 13:16 DC 11/13/20 13:55 80 ML Vital Signs/I&O 11/13/20 11/13/20 11/13/20 13:00 13:00 14:37 Temp 37.9 37.9 Pulse 116 116 Resp 20 20 B/P (MAP) 161/123 (136) 161/123 179/125 (143) Pulse Ox 96 96 O2 Delivery Room Air Capillary Refill : Diagnostic Imaging Diagonstic Imaging: CT Comments NAME: KANDY HAWKINSQUE [facility] REC#: [id number] PT STATUS: REG ER : 1980 PHYSICIAN: KATHY LAW APRN ADMIT DATE: 11/13/20/ER Draft Date of Exam:11/13/20 CT ANGIO CHEST W PROCEDURE: CT angiography of the chest with contrast. TECHNIQUE: Multiple contiguous axial images were obtained through the chest after uneventful bolus administration of intravenous contrast. 3D reconstructed CTA MIP acquisitions were also performed. Auto Exposure Controls were utilized during the CT exam to meet ALARA standards for radiation dose reduction. DATE: November 13, 2020. COMPARISON: CT angiography chest October 30, 2020. INDICATION: 40-year-old male, tachycardia. Hypertension. Shortness of breath. FINDINGS: There is multifocal patchy bilateral lung consolidation with interval improved degree of consolidation since prior exam on October 30, 2020. There are currently more linear areas of opacification which may reflect interval areas of scarring and/or atelectasis. There is a noncalcified 5 mm right lower lobe pulmonary nodule on axial image 55 which is unchanged since the very recent comparison study. There is no pneumothorax. There is no pleural effusion. There is a right hilar lymph node on axial image 46 which measures 11 mm in short axis. There is an additional mildly prominent right hilar lymph node on axial image 58 measuring 8 mm in short axis. Imaged portions of the upper abdomen are unremarkable. There is no identified acute bony abnormality. IMPRESSION: CT CHEST. 1. Multifocal patchy bilateral lung consolidation with interval improved aeration since October 30, 2020. There are currently more linear appearing opacities in distribution which likely relates to interval scarring and/or atelectasis. Overall findings most likely relate to sequela of COVID 19 infection and multifocal pneumonia/pneumonitis. Recommend correlation with history. 2. No identified pulmonary embolus. 3. Prominent right hilar lymph nodes most likely relating to the alveolar consolidative process Dictated on workstation # [id number] Dict: 11/13/20 1416 Trans: 11/13/20 1430 CVB [id number] Interpreted by: GINA KNOWLES MD Electronically signed by: Departure Communication (Admissions) Family Conversation NAME: SCARLETT HAWKINS JR [facility] REC#: [id number] PT STATUS: REG ER : 1980 PHYSICIAN: KATHY LAW APRN ADMIT DATE: 11/13/20/ER Draft Date of Exam:11/13/20 CHEST 1 VIEW, AP/PA ONLY Indication: Tachycardia and hypertension, COVID. Compared: 10/30/2020 Findings: The lungs are clear on followup. There is no failure patter, effusion or pneumothorax. Impression: Clear chest on followup with no acute-appearing abnormality identified. Dictated on workstation # [id number] Dict: 11/13/20 1418 Trans: 11/13/20 1423 CVB [id number] Interpreted by: CODY WEINSTEIN Electronically signed by: He states that he is on lisinopril 40 mg daily. He stopped taking his amlodipine because he developed hives after starting it. EKG at 1253 shows sinus tachycardia rate of 119. ST elevation probable normal early repolarization pattern noted on EKG interpretation. This is very minimal. He does not have chest pain or shortness of breath. He was formerly on a water pill that starts with an H. He believes it to have been hydrochlorothiazide in addition to his lisinopril and believes that it helped. As such I will use hydrochlorothiazide instead of metoprolol Impression Primary Impression: HTN (hypertension) Additional Impression: [id number] condition Disposition: HOME, SELF-CARE Condition: Stable Departure-Patient Inst. Decision time for Depature: 14:20 Referrals: NO,LOCAL PHYSICIAN (PCP/Family) Primary Care Physician Patient Instructions: High Blood Pressure ED Scripts Hydrochlorothiazide (Hydrochlorothiazide) 25 Mg Tablet 25 MG PO DAILY, #20 TAB Prov: KATHY LAW APRN 11/13/20 Work/School Note: Work Release Form Date Seen in the Emergency Department: Nov 13, 2020 Return to Work: Nov 14, 2020 KATHY LAW APRN Nov 13, 2020 12:58
[2020-11-13] MEDS ORDERED: meTOprolol 5 MG/5 ML (LOPRESSOR) VIAL IV ONE ×2 (13:00→13:30)
[2020-11-13 13:13] LABS: HEMOGLOBIN 15.2 g/dL (13.3-17.7); WHITE BLOOD COUNT 11.7 10^3/uL (4.3-11.0)
[2020-11-13 13:14] LABS: BASOPHILS # (AUTO) 0.1 10^3/uL (0.0-0.1); BASOPHILS % (AUTO) 1 % (0-10); EOSINOPHILS % (AUTO) 0 % (0-10); HEMATOCRIT 45 % (40-54); LYMPHOCYTES # (AUTO) 1.3 10^3/uL (1.0-4.0); LYMPHOCYTES % (AUTO) 11 % (12-44); MEAN CORPUSCULAR HEMOGLOBIN 30 pg (25-34); MEAN CORPUSCULAR HGB CONC 34 g/dL (32-36); MEAN CORPUSCULAR VOLUME 88 fL (80-99); MEAN PLATELET VOLUME 10.1 fL (9.0-12.2); MONOCYTES # (AUTO) 0.8 10^3/uL (0.0-1.0); MONOCYTES % (AUTO) 7 % (0-12); NEUTROPHILS # (AUTO) 9.4 10^3/uL (1.8-7.8); NEUTROPHILS % (AUTO) 81 % (42-75); PLATELET COUNT 359 10^3/uL (130-400)
[2020-11-13] MEDS ORDERED: CATHETER FLUSH 10 ML SYR IV PRN (13:15)
[2020-11-13] MEDS ORDERED: HOLD METFORMIN - RECEIVED CONTRAST 20 ML VIAL IV SCH (13:15)
[2020-11-13] MEDS ORDERED: IOHEXOL 350 MG/ML 100 ML (OMNIPAQUE 350) VIAL IV ONE (13:15)
[2020-11-13] MEDS ORDERED: NS 100 ML (IVPB) BAG IV ONE (13:15)
[2020-11-13 13:25] LABS: ALBUMIN 4.2 GM/DL (3.2-4.5); INR 0.9 (0.8-1.4); POTASSIUM 4.1 MMOL/L (3.6-5.0); PROTHROMBIN TIME PATIENT 12.5 SEC (12.2-14.7)
[2020-11-13 13:26] LABS: CALCIUM 9.7 MG/DL (8.5-10.1)
[2020-11-13 13:27] LABS: TOTAL PROTEIN 8.1 GM/DL (6.4-8.2)
[2020-11-13 13:29] LABS: BILIRUBIN,TOTAL 0.6 MG/DL (0.1-1.0)
[2020-11-13 13:31] LABS: CREATININE SERUM 0.85 MG/DL (0.60-1.30)
[2020-11-13 13:33] LABS: MAGNESIUM 2.1 MG/DL (1.6-2.4)
[2020-11-13] MEDS ORDERED: METO-352 PO (14:22)
--- NOTE | 2020-11-13 14:24 | Diagnostic Imaging Report ---
Indication: Tachycardia and hypertension, COVID. Compared: 10/30/2020 Findings: The lungs are clear on followup. There is no failure patter, effusion or pneumothorax. Impression: Clear chest on followup with no acute-appearing abnormality identified. Dictated by: Dictated on workstation # [id number]
[2020-11-13] MEDS ORDERED: meTOproloL SUCCINATE 50 MG (TOPROL XL) TAB PO SCH (14:30)
--- NOTE | 2020-11-13 14:30 | Diagnostic Imaging Report ---
PROCEDURE: CT angiography of the chest with contrast. TECHNIQUE: Multiple contiguous axial images were obtained through the chest after uneventful bolus administration of intravenous contrast. 3D reconstructed CTA MIP acquisitions were also performed. Auto Exposure Controls were utilized during the CT exam to meet ALARA standards for radiation dose reduction. DATE: November 13, 2020. COMPARISON: CT angiography chest October 30, 2020. INDICATION: 40-year-old male, tachycardia. Hypertension. Shortness of breath. FINDINGS: There is multifocal patchy bilateral lung consolidation with interval improved degree of consolidation since prior exam on October 30, 2020. There are currently more linear areas of opacification which may reflect interval areas of scarring and/or atelectasis. There is a noncalcified 5 mm right lower lobe pulmonary nodule on axial image 55 which is unchanged since the very recent comparison study. There is no pneumothorax. There is no pleural effusion. There is a right hilar lymph node on axial image 46 which measures 11 mm in short axis. There is an additional mildly prominent right hilar lymph node on axial image 58 measuring 8 mm in short axis. Imaged portions of the upper abdomen are unremarkable. There is no identified acute bony abnormality. IMPRESSION: CT CHEST. 1. Multifocal patchy bilateral lung consolidation with interval improved aeration since October 30, 2020. There are currently more linear appearing opacities in distribution which likely relates to interval scarring and/or atelectasis. Overall findings most likely relate to sequela of COVID 19 infection and multifocal pneumonia/pneumonitis. Recommend correlation with history. 2. No identified pulmonary embolus. 3. Prominent right hilar lymph nodes most likely relating to the alveolar consolidative process Dictated by: Dictated on workstation # [id number]
[2020-11-13] MEDS ORDERED: cloNIDine 0.1 MG (CATAPRES) TAB ONE (14:35)
[2020-11-13] MEDS ORDERED: cloNIDine 0.1 MG (CATAPRES) TAB PO ONE (14:45)
[2020-11-13 15:35] LABS: BILIRUBIN,URINE NEGATIVE (NEGATIVE); CLARITY,URINE CLEAR; COLOR,URINE YELLOW; GLUCOSE, URINE (UA) NEGATIVE (NEGATIVE); KETONES,URINE NEGATIVE (NEGATIVE); LEUKOCYTE ESTERASE ,URINE NEGATIVE (NEGATIVE); NITRITE,URINE NEGATIVE (NEGATIVE); PROTEIN,URINE NEGATIVE (NEGATIVE)
[2020-11-13] MEDS ORDERED: HYDR25TA4 PO (15:46)
[2020-11-13 15:52] LABS: AMORPHOUS SEDIMENT,UR LARGE AMOR PHOSPHATE /LPF; BACTERIA,URINE NEGATIVE /HPF; RBC,URINE RARE /HPF; WBC,URINE RARE /HPF
[2020-11-13 16:02] VITALS: BP 172/122
== END 2020-11-13 16:02 | disposition home or self-care (01) ==
LOC: EDUNIT# 12:31 → ER 12:32
DX: I10 Essential (primary) hypertension (principal); Z86.16 Personal history of COVID-19
CPT/HCPCS: 36415; 71045; 71275; 80053; 81000; 83605; 83735; 84145; 85025; 85379; 85610; 85730; 87040; 87088; 93005

== ENCOUNTER 2021-10-20 10:08 | Emergency (ER) | payer BC ==
[~2021-10-20] VITALS: Ht 162 cm; Wt 86.0 kg
[~2021-10-20 10:08] MED LIST changes: +HYDR25TA4 PO; +METO-352 PO
[2021-10-20] MEDS ORDERED: ONDANSETRON 4 MG/2 ML (SDV) Z0FRAN IVP ONE (10:30)
[2021-10-20] MEDS ORDERED: LACTATED RINGERS 1,000 ML IV ONE (10:30)
[2021-10-20] MEDS ORDERED: KETOROLAC 30 MG/ML VIAL IVP ONE (10:30)
[2021-10-20 10:53] LABS: BASOPHILS # (AUTO) 0.1 10^3/uL (0.0-0.1); BASOPHILS % (AUTO) 1 % (0-10); EOSINOPHILS # (AUTO) 0.1 10^3/uL (0.0-0.3); EOSINOPHILS % (AUTO) 1 % (0-10); HEMATOCRIT 43 % (40-54); HEMOGLOBIN 14.7 g/dL (13.3-17.7); LYMPHOCYTES # (AUTO) 1.8 10^3/uL (1.0-4.0); LYMPHOCYTES % (AUTO) 26 % (12-44); MEAN CORPUSCULAR HEMOGLOBIN 31 pg (25-34); MEAN CORPUSCULAR HGB CONC 34 g/dL (32-36); MEAN CORPUSCULAR VOLUME 89 fL (80-99); MONOCYTES # (AUTO) 0.4 10^3/uL (0.0-1.0); MONOCYTES % (AUTO) 7 % (0-12); NEUTROPHILS # (AUTO) 4.4 10^3/uL (1.8-7.8); NEUTROPHILS % (AUTO) 65 % (42-75); PLATELET COUNT 255 10^3/uL (130-400); WHITE BLOOD COUNT 6.8 10^3/uL (4.3-11.0)
[2021-10-20 10:58] LABS: POTASSIUM 3.3 MMOL/L (3.6-5.0)
[2021-10-20 10:59] LABS: CALCIUM 9.2 MG/DL (8.5-10.1)
[2021-10-20 11:04] LABS: CREATININE SERUM 1.16 MG/DL (0.60-1.30)
--- NOTE | 2021-10-20 11:29 | ED General ---
General Chief Complaint: Back Problems Stated Complaint: LOWER BACK PAIN Nursing Triage Note: PT AMB TO RM 4 PT CO OF R FLANK PAIN, STARTED THIS AM, STATES HAS TAKEN A HYDROCONE THIS AM, BUT PAIN HAS COME. BACK, PT HAS NAUSEA AND SWEATING. PT HAS HX OF KIDNEY STONE STATES LAST ONE FEW MONTHS AGO. NOTICED BLOOD IN URINE SEVERAL DAYS AGO Source of Information: Patient Exam Limitations: No Limitations History of Present Illness Date Seen by Provider: Oct 20, 2021 Time Seen by Provider: 10:26 Initial Comments This 41-year-old gentleman presents to the emergency room with complaints of right flank pain that started this morning and hematuria that has been ongoing for about a week. He has history of passing kidney stones in the past, perhaps up to 4 of them. His last passage of a kidney stone was about 2 months ago. He has not been receiving treatment for this. However, his pain was more intense today prompting him to seek care. He has also been nauseated with this pain. He took a hydrocodone at home which only modestly improved his pain. Allergies and Home Medications Allergies Coded Allergies: Sulfa (Sulfonamide Antibiotics) (Verified Allergy, Intermediate, 10/29/20) Patient Home Medication List Home Medication List Reviewed: Yes Acetaminophen (Tylenol Extra Strength) 500 Mg Tablet, 500-1,000 MG PO Q8H PRN for PAIN-MILD (1-4), (Reported) Entered as Reported by: MASOOD MORALES on 10/30/20 1327 Amlodipine Besylate (Amlodipine Besylate) 10 Mg Tablet, 10 MG PO DAILY Prescribed by: DEE YODER on 11/03/20 1346 Cephalexin (Cephalexin) 500 Mg Tablet, 500 MG PO TID Prescribed by: OFE CAR on 10/20/21 1136 Hydrochlorothiazide (Hydrochlorothiazide) 25 Mg Tablet, 25 MG PO DAILY Prescribed by: KATHY LAW on 11/13/20 1546 Ibuprofen (Ibuprofen) 200 Mg Capsule, 400 MG PO Q8H PRN for PAIN-MILD (1-4), (Reported) Entered as Reported by: MASOOD MORALES on 10/30/20 1327 Lisinopril (Lisinopril) 40 Mg Tablet, 40 MG PO DAILY Prescribed by: DEE YODER on 11/03/20 1346 Multivitamin (Multivitamin) 1 Each Tablet, 1 EACH PO DAILY, (Reported) Entered as Reported by: MASOOD MORALES on 10/30/20 1327 Ondansetron (Ondansetron Odt) 4 Mg Tab.rapdis, 4 MG SL Q4H PRN for NAUSEA/VOMITING Prescribed by: OFE CAR on 10/20/21 1136 Oxycodone HCl/Acetaminophen (Percocet 5-325 mg Tablet) 1 Each Tablet, 1 TAB PO Q4H PRN for PAIN-BREAKTHROUGH Prescribed by: OFE CAR on 10/20/21 1136 Tamsulosin HCl (Flomax) 0.4 Mg Cap, 0.4 MG PO DAILY Prescribed by: OFE CAR on 10/20/21 1136 Review of Systems Review of Systems Constitutional: no symptoms reported EENTM: no symptoms reported Respiratory: no symptoms reported Cardiovascular: no symptoms reported Gastrointestinal: see HPI Genitourinary: see HPI Musculoskeletal: no symptoms reported Skin: no symptoms reported Psychiatric/Neurological: No Symptoms Reported Hematologic/Lymphatic: No Symptoms Reported Immunological/Allergic: no symptoms reported Past Prhtnqz-Lqfeyx-Ttrsmr Hx Patient Social History Tobacco Use?: No Substance use?: Yes Substance type: Marijuana Substance frequency: Once in a while Alcohol Use?: Yes Alcohol type: Beer Alcohol Frequency: Once in a while Pt feels they are or have been: No Past Medical History Surgery/Hospitalization HX: HTN, KIDNEY STONES Surgeries: Yes Appendectomy Respiratory: No Cardiac: Yes Hypertension Neurological: No Reproductive Disorders: No Genitourinary: Yes Kidney Stones Gastrointestinal: No Musculoskeletal: No Endocrine: No HEENT: No Cancer: No Psychosocial: No Integumentary: No Family Medical History No Pertinent Family Hx Physical Exam Vital Signs Vital Signs - First Documented 10/20/21 10:14 Temp 36.7 Pulse 90 Resp 18 B/P (MAP) 151/99 (116) Pulse Ox 96 Capillary Refill : Less Than 3 Seconds Height, Weight, BMI Height: '" Weight: lbs. oz. kg; 32.00 BMI Method: General Appearance: No Apparent Distress, WD/WN HEENT: PERRL/EOMI, Normal ENT Inspection Neck: Normal Inspection Respiratory: Lungs Clear, Normal Breath Sounds, No Accessory Muscle Use Cardiovascular: Regular Rate, Rhythm, No Edema, No Murmur Gastrointestinal: Normal Bowel Sounds, Soft; No Distended; Tenderness (Minimal in the right flank) Extremity: Normal Inspection, No Pedal Edema Neurologic/Psychiatric: Alert, Oriented x3, No Motor/Sensory Deficits, Normal Mood/Affect, big data developer II-XII Norm as Tested Skin: Normal Color, Warm/Dry Progress/Results/Core Measures Suspected Sepsis SIRS Temperature: Pulse: 90 Respiratory Rate: 18 Laboratory Tests 10/20/21 10:15: White Blood Count 6.8 Blood Pressure 151 /99 Mean: 116 Laboratory Tests 10/20/21 10:15: Creatinine 1.16, Platelet Count 255 Results/Orders Lab Results Laboratory Tests Test 10/20/21 10:15 10/20/21 11:59 Range/Units White Blood Count 6.8 4.3-11.0 10^3/uL Red Blood Count 4.80 4.30-5.52 10^6/uL Hemoglobin 14.7 13.3-17.7 g/dL Hematocrit 43 40-54 % Mean Corpuscular Volume 89 80-99 fL Mean Corpuscular Hemoglobin 31 25-34 pg Mean Corpuscular Hemoglobin Concent 34 32-36 g/dL Red Cell Distribution Width 12.4 10.0-14.5 % Platelet Count 255 130-400 10^3/uL Mean Platelet Volume 11.0 9.0-12.2 fL Immature Granulocyte % (Auto) 0 % Neutrophils (%) (Auto) 65 42-75 % Lymphocytes (%) (Auto) 26 12-44 % Monocytes (%) (Auto) 7 0-12 % Eosinophils (%) (Auto) 1 0-10 % Basophils (%) (Auto) 1 0-10 % Neutrophils # (Auto) 4.4 1.8-7.8 10^3/uL Lymphocytes # (Auto) 1.8 1.0-4.0 10^3/uL Monocytes # (Auto) 0.4 0.0-1.0 10^3/uL Eosinophils # (Auto) 0.1 0.0-0.3 10^3/uL Basophils # (Auto) 0.1 0.0-0.1 10^3/uL Immature Granulocyte # (Auto) 0.0 0.0-0.1 10^3/uL Sodium Level 141 135-145 MMOL/L Potassium Level 3.3 L 3.6-5.0 MMOL/L Chloride Level 105 98-107 MMOL/L Carbon Dioxide Level 24 21-32 MMOL/L Anion Gap 12 5-14 MMOL/L Blood Urea Nitrogen 19 H 7-18 MG/DL Creatinine 1.16 0.60-1.30 MG/DL Estimat Glomerular Filtration Rate 81 BUN/Creatinine Ratio 16 Glucose Level 143 H 70-105 MG/DL Calcium Level 9.2 8.5-10.1 MG/DL Urine Color DARK YELLOW Urine Clarity CLOUDY Urine pH 6.0 5-9 Urine Specific Zenia 1.025 H 1.016-1.022 Urine Protein 2+ H NEGATIVE Urine Glucose (UA) NEGATIVE NEGATIVE Urine Ketones NEGATIVE NEGATIVE Urine Nitrite NEGATIVE NEGATIVE Urine Bilirubin NEGATIVE NEGATIVE Urine Urobilinogen 0.2 < = 1.0 MG/DL Urine Leukocyte Esterase NEGATIVE NEGATIVE Urine RBC (Auto) 3+ H NEGATIVE Urine RBC >100 H /HPF Urine WBC 2-5 /HPF Urine Crystals PRESENT H /LPF Urine Calcium Oxalate Crystals RARE H /LPF Urine Bacteria FEW H /HPF Urine Casts NONE /LPF Urine Mucus LARGE H /LPF Urine Culture Indicated YES My Orders Orders - OFE DALLAS MD Ondansetron Injection (Zofran Injectio (10/20/21 10:30) Ketorolac Injection (Toradol Injection) (10/20/21 10:30) Ed Iv/Invasive Line Start (10/20/21 10:27) Lactated Ringers (Lr 1000 Ml Iv Solution (10/20/21 10:30) Basic Metabolic Panel (10/20/21 10:46) Cbc With Automated Diff (10/20/21 10:46) Abdomen/Kub 1view (10/20/21 10:46) Ua Culture If Indicated (10/20/21 11:31) Urine Culture (10/20/21 11:59) Medications Given in ED Current Medications Medications Dose Ordered Sig/Flaquita Route Start Time Stop Time Status Last Admin Dose Admin Ketorolac Tromethamine 30 mg ONCE ONCE IVP 10/20/21 10:30 10/20/21 10:31 DC 10/20/21 10:40 30 MG Lactated Ringer's 1,000 ml @ 0 mls/hr Q0M ONCE IV 10/20/21 10:30 10/20/21 10:31 DC 10/20/21 10:41 1,000 MLS/HR Ondansetron HCl 8 mg ONCE ONCE IVP 10/20/21 10:30 10/20/21 10:31 DC 10/20/21 10:40 8 MG Vital Signs/I&O 10/20/21 10/20/21 10:14 11:31 Temp 36.7 36.7 Pulse 90 90 Resp 18 18 B/P (MAP) 151/99 (116) 151/99 Pulse Ox 96 96 Capillary Refill : Less Than 3 Seconds Blood Pressure Mean: 116 Progress Note : Time: 11:27 Progress Note Patient was treated with Toradol and Zofran. We discussed imaging studies. He would like to forego the CT scan at this time but is willing to get a KUB. Diagnostic Imaging Diagonstic Imaging: Xray Plain Films/CT/US/NM/MRI: abdomen, pelvis Comments KUB viewed by me by me and report reviewed. See report below: NAME: SCARLETT HAWKINS JR [facility] REC#: [id number] PT STATUS: REG ER : 1980 PHYSICIAN: OFE DALLAS MD ADMIT DATE: 10/20/21/ER Draft Date of Exam:10/20/21 ABDOMEN/KUB 1VIEW INDICATION: Abdominal pain. COMPARISON: None available. TECHNIQUE: AP view of the abdomen. FINDINGS: Nonobstructive bowel gas pattern. No features of free intraperitoneal air. Punctate hyperdensity overlying the upper pole right kidney could represent renal stone. No features of hepatomegaly. Normal regional skeleton. IMPRESSION: 1. Nonobstructive bowel gas pattern. 2. Potential right nephrolithiasis. Dictated on workstation # [id number] Dict: 10/20/21 1135 Trans: 10/20/21 1137 [id number] Interpreted by: DONAVON BECKER MD Departure Impression Primary Impression: Right flank pain Additional Impressions: Hematuria Qualified Codes: R31.9 - Hematuria, unspecified Nausea Disposition: 01 HOME, SELF-CARE Condition: Improved Departure-Patient Inst. Decision time for Depature: 11:31 Referrals: NO,LOCAL PHYSICIAN (PCP/Family) Primary Care Physician Patient Instructions: Flank Pain ED, Kidney Stone Diet, Kidney Stone, Adult ED Add. Discharge Instructions: Drink plenty of clear liquids to stay well-hydrated and flush out your urinary tract. Complete your antibiotics and Flomax as prescribed. Use Zofran (ondansetron) as prescribed for nausea and vomiting. You may use ibuprofen up to 600 mg every 6 hours as needed to treat pain. Add Percocet as prescribed for pain not controlled by ibuprofen. Collect any stones produced by straining your urine through the provided final. Bring any stones collected to your follow-up appointment. Follow-up with your primary care provider or a urologist as soon as possible. Dr. Moore's phone number is provided below for your convenience. He is a urologist in [place]. Call with questions or concerns. Return to the ER if you have worsening symptoms despite following these instructions. All discharge instructions reviewed with patient and/or family. Voiced understanding. Scripts Oxycodone HCl/Acetaminophen (Percocet 5-325 mg Tablet) 1 Each Tablet 1 TAB PO Q4H PRN for PAIN-BREAKTHROUGH MDD 6 TABS, #10 TAB Prov: OFE DALLAS MD 10/20/21 Ondansetron (Ondansetron Odt) 4 Mg Tab.rapdis 4 MG SL Q4H PRN for NAUSEA/VOMITING, #10 TAB Prov: OFE DALLAS MD 10/20/21 Tamsulosin HCl (Flomax) 0.4 Mg Cap 0.4 MG PO DAILY, #10 CAP Prov: OFE DALLAS MD 10/20/21 Cephalexin (Cephalexin) 500 Mg Tablet 500 MG PO TID, #30 TAB Prov: OFE DALLAS MD 10/20/21 Copy Copies To 1: [facility] [place] Copies To 2: SYDNIE MOORE MD, JOSHUA T MD Oct 20, 2021 11:29
[2021-10-20 11:31] VITALS: BP 151/99
[2021-10-20] MEDS ORDERED: CEPH500T PO (11:36)
[2021-10-20] MEDS ORDERED: ONDA4TAB11 SL (11:36)
[2021-10-20] MEDS ORDERED: TMSL.4C PO (11:36)
[2021-10-20] MEDS ORDERED: OXYC1TAB87 PO (11:36)
--- NOTE | 2021-10-20 11:37 | Diagnostic Imaging Report ---
ABDOMEN/KUB 1VIEW INDICATION: Abdominal pain. COMPARISON: None available. TECHNIQUE: AP view of the abdomen. FINDINGS: Nonobstructive bowel gas pattern. No features of free intraperitoneal air. Punctate hyperdensity overlying the upper pole right kidney could represent renal stone. No features of hepatomegaly. Normal regional skeleton. IMPRESSION: 1. Nonobstructive bowel gas pattern. 2. Potential right nephrolithiasis. Dictated by: Dictated on workstation # [id number]
[2021-10-20 12:18] LABS: BILIRUBIN,URINE NEGATIVE (NEGATIVE); CLARITY,URINE CLOUDY; COLOR,URINE DARK YELLOW; GLUCOSE, URINE (UA) NEGATIVE (NEGATIVE); KETONES,URINE NEGATIVE (NEGATIVE); LEUKOCYTE ESTERASE ,URINE NEGATIVE (NEGATIVE); NITRITE,URINE NEGATIVE (NEGATIVE); PROTEIN,URINE 2+ (NEGATIVE)
[2021-10-20 12:34] LABS: BACTERIA,URINE FEW /HPF; RBC,URINE >100 /HPF
[2021-10-20 12:35] LABS: CALCIUM OXALATE CRYSTALS,UR RARE /LPF
== END 2021-10-20 11:59 | disposition home or self-care (01) ==
LOC: EDUNIT# 10:08 → ER 10:12
DX: R31.9 Hematuria, unspecified (principal); Z87.442 Personal history of urinary calculi; Z90.49 Acquired absence of other specified parts of digestive tract
CPT/HCPCS: 36415; 74018; 80048; 81000; 85025; 87088

== ENCOUNTER 2022-10-17 19:51 | Emergency (ER) | payer BC ==
[~2022-10-17] VITALS: Ht 162.6 cm; Wt 86.2 kg
[~2022-10-17 19:51] MED LIST changes: +CEPH500T PO; +ONDA4TAB11 SL; +OXYC1TAB87 PO; +TMSL.4C PO
[2022-10-17 20:00] VITALS: BP 223/137
[2022-10-17] MEDS ORDERED: RX-DOXYCYCLINE 100 MG (VIBRAMYCIN) TAB PPK#2 PO STA (20:24)
[2022-10-17] MEDS ORDERED: DOXY100T2 PO ×2 (20:27→20:38)
--- NOTE | 2022-10-17 20:29 | ED Integumentary General ---
General Chief Complaint: Bite-Animal/Human/Insect Stated Complaint: TICK BITE Nursing Triage Note: PT AMB TO ED BY POV WITH C/O TICK BITE. PT REPORTS HE PULLED A TICK OFF OF HIS R CHEST LAST NIGHT. TODAY, AREA AROUND BITE WAS RED AND ITCHY. PT HTN UPON ARRIVAL, DENIES ALCARAZ, DIZZINESS, OR ANY OTHER SX AT THIS TIME. PT REPORTS HE RAN OUT OF HIS BP MEDS 3 WEEKS AGO. Source: patient History of Present Illness Date Seen by Provider: Oct 17, 2022 Time Seen by Provider: 20:15 Initial Comments PT ARRIVES VIA POV FROM HOME C/O TICK BITE TO RIGHT UPPER CHEST/AXILLA AREA YESTERDAY HE PULLED THE TICK OFF, REPORTEDLY INTACT, LAST NIGHT TODAY HE HAS REDNESS AND SWELLING TO THE AREA AND THE AREA IS ITCHY NO FEVER/SWEATS/CHILLS NO HEADACHE NO BODY ACHES NO NAUSEA/VOMITING HE HAD A TICK BITE ABOUT 2 WEEKS AGO TO HIS RIGHT LOWER BACK AREA, AND IT DID NOT DO THIS--JUST HAS A SMALL RED BUMP AT THE SITE, WHICH IS ALMOST GONE NOW LAST TETANUS IS UNKNOWN ADDITIONALLY, PT RAN OUT OF BLOOD PRESSURE MEDICATIONS 3 WEEKS AGO, AND STATES THEY WILL NOT REFILL THEM UNTIL HE MAKES AN APPOINTMENT, WHICH HE HAS NOT ATTEMPTED TO DO. HE DENIES ANY SYMPTOMS OF ELEVATED BLOOD PRESSURE PCP: DR. LEVINE AT [facility] Allergies and Home Medications Allergies Coded Allergies: Sulfa (Sulfonamide Antibiotics) (Verified Allergy, Intermediate, 10/29/20) Patient Home Medication List Home Medication List Reviewed: Yes Acetaminophen (Tylenol Extra Strength) 500 Mg Tablet, 500-1,000 MG PO Q8H PRN for PAIN-MILD (1-4), (Reported) Entered as Reported by: MASOOD MORALES on 10/30/20 1327 Amlodipine Besylate (Amlodipine Besylate) 10 Mg Tablet, 10 MG PO DAILY Prescribed by: DEE YODER on 11/03/20 1346 Cephalexin (Cephalexin) 500 Mg Tablet, 500 MG PO TID Prescribed by: OFE CAR on 10/20/21 1136 Doxycycline Hyclate (Doxycycline Hyclate) 100 Mg Tablet, 100 MG PO BID Prescribed by: LARON BALTAZAR on 10/17/222026 Hydrochlorothiazide (Hydrochlorothiazide) 25 Mg Tablet, 25 MG PO DAILY Prescribed by: KATHY LAW on 11/13/20 1546 Ibuprofen (Ibuprofen) 200 Mg Capsule, 400 MG PO Q8H PRN for PAIN-MILD (1-4), (Reported) Entered as Reported by: MASOOD MORALES on 10/30/20 1327 Lisinopril (Lisinopril) 40 Mg Tablet, 40 MG PO DAILY Prescribed by: DEE YODER on 11/03/20 1346 Multivitamin (Multivitamin) 1 Each Tablet, 1 EACH PO DAILY, (Reported) Entered as Reported by: MASOOD MORALES on 10/30/20 1327 Ondansetron (Ondansetron Odt) 4 Mg Tab.rapdis, 4 MG SL Q4H PRN for NAUSEA/VOMITING Prescribed by: OFE CAR on 10/20/21 1136 Oxycodone HCl/Acetaminophen (Percocet 5-325 mg Tablet) 1 Each Tablet, 1 TAB PO Q4H PRN for PAIN-BREAKTHROUGH Prescribed by: OFE CAR on 10/20/21 1136 Tamsulosin HCl (Flomax) 0.4 Mg Cap, 0.4 MG PO DAILY Prescribed by: OFE CAR on 10/20/21 1136 Review of Systems Review of Systems Constitutional: no symptoms reported EENTM: no symptoms reported Respiratory: no symptoms reported Cardiovascular: no symptoms reported Gastrointestinal: no symptoms reported Genitourinary: no symptoms reported Musculoskeletal: no symptoms reported Skin: see HPI Psychiatric/Neurological: No Symptoms Reported Endocrine: No Symptoms Reported Past Wmgtzjm-Vhgkco-Xnjcmh Hx Patient Social History Tobacco Use?: No Use of E-Cig and/or Vaping dev: No Substance use?: Yes Substance type: Marijuana Substance frequency: Several times a month Alcohol Use?: Yes Alcohol Frequency: Once in a while Pt feels they are or have been: No Immunizations Up To Date Influenza Vaccine Up-to-Date: No; Not Current Past Medical History Surgery/Hospitalization HX: HTN, APPE Surgeries: Yes Appendectomy Respiratory: No Cardiac: Yes Hypertension Neurological: No Reproductive Disorders: No Genitourinary: Yes Kidney Stones Gastrointestinal: No Musculoskeletal: No Endocrine: No HEENT: No Cancer: No Psychosocial: No Integumentary: No Blood Disorders: No Family Medical History No Pertinent Family Hx Physical Exam Vital Signs Vital Signs - First Documented 10/17/22 20:00 Temp 37.0 Pulse 84 Resp 16 B/P (MAP) 223/137 (165) Pulse Ox 100 O2 Delivery Room Air Capillary Refill : Less Than 3 Seconds General Appearance: WD/WN, no apparent distress Neck: normal inspection Cardiovascular: regular rate, rhythm, no murmur Respiratory: chest non-tender, normal breath sounds, no respiratory distress, no accessory muscle use Gastrointestinal: non tender Extremities: normal inspection, normal capillary refill 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 NO TENDERNESS, NO DRAINAGE, NO FLUCTUANCE, NO STREAKS) Progress/Results/Core Measures Results/Orders My Orders Orders - LARON BALTAZAR DO Dipht,Pertuss(Acell),Tet Adult (Boostrix (10/17/22 20:30) Rx-Doxycycline Tablet (Rx-Vibramycin Tab (10/17/22 20:24) Vital Signs/I&O 10/17/22 20:00 Temp 37.0 Pulse 84 Resp 16 B/P (MAP) 223/137 (165) Pulse Ox 100 O2 Delivery Room Air Blood Pressure Mean: 165 Progress Progress Note : Progress Note DISCUSSED ANTICIPATED COURSE, SYMPTOMATIC TREATMENT, MEDICATIONS, NEED FOR FOR FOLLOW UP AND RETURN PRECAUTIONS ALSO ADVISED OF IMPORTANCE OF FOLLOW UP WITH [facility] TO GET BACK ON HIS BLOOD PRESSURE MEDICATIONS. Departure Impression Primary Impression: TICK BITE WITH LOCAL REACTION Additional Impressions: Bwxqddfxdn-iwphsqbav-yuskfcu (DPT) vaccination administered at current visit HTN (hypertension) Disposition: 01 HOME, SELF-CARE Condition: Stable Departure-Patient Inst. Decision time for Depature: 20:25 Referrals: MASOOD LEVINE DO (PCP/Family) Primary Care Physician Patient Instructions: DASH Diet, High Blood Pressure ED, Insect Bites and Stings ED, Rickettsial Infections Add. Discharge Instructions: TYLENOL AND MOTRIN NEEDED FOR PAIN OR FEVER FOLLOW UP WITH [facility] IN 1-2 DAYS FOR FURTHER CARE OF TICK BITE WELL BLOOD PRESSURE RETURN TO ER IF SYMPTOMS WORSEN All discharge instructions reviewed with patient and/or family. Voiced understanding. Scripts Doxycycline Hyclate (Doxycycline Hyclate) 100 Mg Tablet 100 MG PO BID, #20 TAB 0 Refills Prov: LARON BALTAZAR DO 10/17/22 Images Torso/Trunk 1 - LARON BALTAZAR DO Oct 17, 2022 20:29
[2022-10-17] MEDS ORDERED: TETANUS,DIPTH,PERTUSS P/F (BOOSTRIX) 0.5 ML VIAL IM ONE (20:30)
== END 2022-10-17 20:38 | disposition home or self-care (01) ==
LOC: EDUNIT# 19:51 → ER 19:53
DX: S20.361A Insect bite (nonvenomous) of right front wall of thorax, initial encounter (principal); L08.9 Local infection of the skin and subcutaneous tissue, unspecified; I10 Essential (primary) hypertension; Z23 Encounter for immunization; Z88.2 Allergy status to sulfonamides; W57.XXXA Bitten or stung by nonvenomous insect and other nonvenomous arthropods, initial encounter
CPT/HCPCS: 90715; 99284